=== PATIENT | male | born 1970 | race Two or more races ===

== ENCOUNTER 2020-06-12 19:32 | Emergency (ER) | payer MEDICAID, SELFPAY ==
--- NOTE | ~2020-06-12 | CT_ITS ---
EXAMINATION: HEAD AND CERVICAL SPINE CT SCAN WITHOUT CONTRAST CLINICAL INFORMATION: Fall. Loss of consciousness. COMPARISON: None TECHNIQUE: Axial images through the head and cervical spine without contrast. Sagittal and coronal reconstructions on the technologist workstation were performed. Patient dose 755+3 3 3 mg/cm. This CT examination was performed using dose optimization techniques as appropriate, variously including the following: *Automated exposure control *Adjustment of mA and/or kV according to patient size (this includes techniques or standardized protocols for targeted exams where dose is matched to indication/reason for exam; i.e. extremities or head) *Use of iterative reconstruction technique FINDINGS: Head CT: There is no evidence of an extra-axial collection. There is no evidence of intra-axial or extra-axial hemorrhage. The ventricles and extra-axial CSF spaces are appropriate. Kwong-white matter differentiation is normal. No mass, mass effect or infarct is seen. Review of bone windows demonstrates No skull fracture. There are inflammatory changes seen in the bilateral maxillary ethmoid and frontal sinuses. Cervical spine: Bone alignment is normal. No fracture or dislocation is seen. There is degenerative spondylosis at C4-C5 and C5-C6. There are degenerative changes at the C1 dens articulation. Prevertebral soft tissues are normal. Visualized lung apices are clear. CT/CT cervical spine wo con IMPRESSION: Head CT: No acute findings. Inflammatory changes in the sinuses. Cervical spine CT: No fracture or dislocation seen. Mild degenerative changes.
--- NOTE | ~2020-06-12 | CT_ITS ---
EXAMINATION: HEAD AND CERVICAL SPINE CT SCAN WITHOUT CONTRAST CLINICAL INFORMATION: Fall. Loss of consciousness. COMPARISON: None TECHNIQUE: Axial images through the head and cervical spine without contrast. Sagittal and coronal reconstructions on the technologist workstation were performed. Patient dose 755+3 3 3 mg/cm. This CT examination was performed using dose optimization techniques as appropriate, variously including the following: *Automated exposure control *Adjustment of mA and/or kV according to patient size (this includes techniques or standardized protocols for targeted exams where dose is matched to indication/reason for exam; i.e. extremities or head) *Use of iterative reconstruction technique FINDINGS: Head CT: There is no evidence of an extra-axial collection. There is no evidence of intra-axial or extra-axial hemorrhage. The ventricles and extra-axial CSF spaces are appropriate. Kwong-white matter differentiation is normal. No mass, mass effect or infarct is seen. Review of bone windows demonstrates No skull fracture. There are inflammatory changes seen in the bilateral maxillary ethmoid and frontal sinuses. Cervical spine: Bone alignment is normal. No fracture or dislocation is seen. There is degenerative spondylosis at C4-C5 and C5-C6. There are degenerative changes at the C1 dens articulation. Prevertebral soft tissues are normal. Visualized lung apices are clear. CT/CT head/brain wo con IMPRESSION: Head CT: No acute findings. Inflammatory changes in the sinuses. Cervical spine CT: No fracture or dislocation seen. Mild degenerative changes.
[2020-06-12 19:41] VITALS: BP 108/60; BP 132/73; PULSE 62; PULSE 67; RESP 14; TEMP 36.6; O2SAT 100; O2SAT 99; BMI 23.6
[2020-06-12 19:47] VITALS: BP 126/74; PULSE 59; RESP 18; TEMP 36.6; O2SAT 100
--- NOTE | 2020-06-12 21:25 | ED.SYNCOPE ---
HPI - Syncope General Chief Complaint: General Medical Stated Complaint: SYNCOPE S/P ANESTHESIA, LAC ABOVE EYE,+COLLAR Time Seen by Provider: 06/12/20 21:02 Source: patient Mode of arrival: EMS History of Present Illness HPI narrative: This is a 49-year-old male who has not been eating or drinking throughout the day and then went for a dental procedure where he had a tooth removed. He states that the procedure went well and he went home and was eating some food and Allis and he noticed that his vision was narrowing he began sweating and informed his that he wanted to take a nap got up to walk in the bedroom and then the , who is at bedside, states that she heard a thud. She states that he was face down and she knows some bleeding over his right eye. He denies any associated fevers, chills, palpitations, recent illnesses. But both he and his endorse poor p.o. intake throughout the day. Related Data Allergies Allergy/AdvReac Type Severity Reaction Status Date / Time No Known Allergies Allergy Verified 06/12/20 19:40 Review of Systems Review of Systems: Pertinent positives and negatives as stated in HPI and 10 point review of systems is otherwise negative. PMFSH Past Medical History Source: nursing notes reviewed Surgical History Previous back surgery Social History Social History Alcohol intake: never Smoking Status: Never smoker Use of substances other than those prescribed or required for medical reasons: No Advance Directives: No Physical Exam Vital Signs: Vital Signs: Last Vital Signs Temp 99.2 F 06/12/20 21:27 Pulse 72 06/12/20 21:27 Resp 18 06/12/20 21:27 BP 108/65 06/12/20 21:27 Pulse Ox 99 06/12/20 21:27 Body Mass Index 23.6 VITAL SIGNS: Reviewed. GENERAL: Well developed, well nourished, in no acute distress. HEAD: Normocephalic/3 cm laceration to the right eyebrow EYES: PERRLA, EOMI intact without pain, no nystagmus NOSE: Nares patent bilateral, no insert OROPHARYNX: no oral lesions noted, posterior pharynx clear NECK: C-collar in place, no midline cervical tenderness, no adenopathy LUNGS: Normal breath sounds. No adventitious sounds or accessory muscle use. SpO2<99> CARDIOVASCULAR: Regular rate and rhythm without noted murmur ABDOMEN: Soft, non-tender, non-distended with bowel sounds. NEUROLOGIC: Alert and oriented x 4. Strength and sensation to light touch were grossly intact x 4, no pronator drift Course Course Course Narrative: This is a 49-year-old male with history and clinical presentation secondary to vasovagal syncope. Review of all imaging is negative for any acute findings and C-collar was cleared. Laceration over the right brow was repaired without complications. Patient was then discharged home in stable condition after having received combination allergies. Procedures Laceration Laceration 1: Site: face Side (If applicable): right Size (cm): 3 Description: linear Depth: simple, single layer Local Anesthetic: lidocaine 2% Amount of anesthesia used (mL): 3 Pre-repair: wound explored and irrigated extensively Skin layer closed with: other (Prolene) Size (cm): 6-0 Number of sutures: 5 Technique: simple, interrupted Subcutaneous layer closed with: chromic gut Size: 5-0 Number of sutures: 2 Technique: simple, interrupted Discharge Plan Discharge Clinical Impression: Laceration Patient Disposition: Home, Self-Care Instructions: Laceration (ED), Care For Your Stitches (ED), Facial Laceration (ED) Additional Instructions: 1. Tylenol 1000 mg, orally, every 6 hours as needed for pain control. Do not exceed 4000 mg within 24 hours. 2. Ibuprofen 400 mg, orally with milk or food, every 6 hours as needed for pain control. 3. Apply ice 5-10 minutes to unexposed skin for additional swelling control. 4. Follow-up with your primary care provider in 5 days for removal of external sutures. May cleanse with soap and water and blot dry and reapply antibiotic ointment. Do not hesitate to return to the emergency department should you experience any worsening of swelling over the eye, changes in vision, fevers, chills. Referrals: Physician,Unknown [Primary Care Provider] - 2 days
[2020-06-12 21:27] VITALS: BP 108/65; PULSE 72; RESP 18; TEMP 37.3; O2SAT 99
[2020-06-12] MEDS: 0.9 % Sodium Chloride 1,000 ML 999 ML IV (21:29)
[2020-06-12] MEDS: Lidocaine HCl 2 % MPF 5 ML VIAL INFILTRATI (21:30)
[2020-06-12] MEDS: Acetaminophen 325 MG TABLET 975 MG PO (23:09)
[2020-06-12] MEDS: Ketorolac Tromethamine 15 MG/ML VIAL IVPUSH (23:09)
--- NOTE | 2020-06-12 23:10 | PC.NURSE ---
Dr. Bowers at bedside to suture pt. tolerating well thus far
== END 2020-06-12 23:45 | disposition home or self-care (01) ==
PROVIDERS: Emergency Provider Student in an Organized Health Care Education/Training Program
DX: S01.81XA Laceration without foreign body of other part of head, initial encounter (principal); M54.2 Cervicalgia; R55 Syncope and collapse; X58.XXXA Exposure to other specified factors, initial encounter; Y93.9 Activity, unspecified; Y92.9 Unspecified place or not applicable; Y99.9 Unspecified external cause status
CPT/HCPCS: 12013; 70450; 72125; 96360; 96375; 99284; J1885

== ENCOUNTER 2020-06-17 12:42 | Emergency (ER) | payer OTHER, SELFPAY ==
[2020-06-17 12:47] VITALS: BP 126/62; PULSE 99; RESP 18; TEMP 37.1; O2SAT 99; BMI 22.8
--- NOTE | 2020-06-17 12:52 | ED.SKABFB ---
HPI - Skin/Abscess/Foreign Bdy General Chief complaint: Skin/Abscess/Foreign Body Stated complaint: Lac Time Seen by Provider: 06/17/20 12:52 Source: patient Mode of arrival: ambulatory Limitations: no limitations History of Present Illness HPI narrative: 49 y/o male presenting for suture removal. He was seen here 5 days ago and 5 sutures were placed above his right eye brow. He reports the wound is healing nicely but he still has an egg that is tender. He has been using ice to the area with some improvement. He denies redness of the wound or drainage of pus. complaint: laceration Onset (ago): day(s) (5) Tetanus up to date: no Location: face Severity: mild Quality: aching Pain Consistency: intermittent Relieving factors: cold therapy Exacerbating factors: palpation Associated symptoms: denies other symptoms Treatments prior to arrival: none Related Data Allergies Allergy/AdvReac Type Severity Reaction Status Date / Time No Known Allergies Allergy Verified 06/12/20 19:40 Review of Systems Review of Systems: Constitutional: No Fever, No Chills Eyes: No Eye Pain, Swelling, No Redness Skin: + Skin Lesions, No rash Neuro: No Headache Psych: No Anxiety/Panic, No Depression Heme/Lymph: No Bruising, No Lymphadenopathy PMFSH Past Medical History Attestation statement: The following information was validated with the patient. Surgical History Previous back surgery Social History Social History Alcohol intake: never Smoking Status: Never smoker Advance Directives: No Advance Directives Information Provided: No Physical Exam Vital Signs: Vital Signs: Last Vital Signs Temp 98.7 F 06/17/20 12:47 Pulse 99 06/17/20 12:47 Resp 18 06/17/20 12:47 BP 126/62 06/17/20 12:47 Pulse Ox 99 06/17/20 12:47 Body Mass Index 22.8 Const: General: cooperative, healthy appearing, comfortable, no acute distress and well developed Orientation/consciousness: patient oriented x3 HENMT: Head: Yes normocephalic, No Sotelo's sign, Yes hematoma (over right eyebrow ) and No raccoon eyes Head images: 1. well healing laceration with [address], no erythema or warmth. Ears: hearing grossly normal bilaterally General nose exam: Normal external nose present Face and sinus: Yes normal facial exam Mouth: Normal oral and palatal mucosa present Eyes: Alignment and Position: alignment normal Periorbital: periorbital findings abnormal right periorbital tenderness Eyelids: Yes eyelids normal Conjunctivae: conjunctivae normal Neck: Neck: Yes normal visual inspection Chest: Chest palpation & inspection: normal inspection of the chest Resp: Effort & Inspection: normal respiratory effort and able to speak in complete sentences Skin: General skin exam: no rashes or lesions noted Neuro: General: patient oriented x3 and gait normal Extrem: General: Yes normal to inspection Psych: Appearance: grossly normal and well kempt Mental Status: mental status grossly normal Course Course Course Narrative: 49 y/o male presenting for suture removal 5 days after placement to right eyebrow as recommenced by Dr. Bowers who placed the sutures. Wound is healing as expected, wound margins are well approximated. 5 blue sutures were identified and removed successfully. Additional steri-strips were applied for continued support of closure. Wound care discussed with patient. Stable for discharge. Critical Care Time Critical Care Time Critical Care Time: No Discharge Plan Discharge Clinical Impression: Encounter for removal of sutures Patient Disposition: Home, Self-Care Instructions: Stitches Removal (ED) Additional Instructions: Continue to use ice several times per day to help with swelling and pain. You may get the steri-strips wet, then pat dry. They will fall off on their own, usually in 1 week. Follow up with your doctor as needed. Interventions: ED Discharge Assessment Last Done: 06/17/20 13:12 Discharge Date/Time: 06/17/20 13:13
== END 2020-06-17 13:13 | disposition home or self-care (01) ==
PROVIDERS: Emergency Provider Emergency Medicine
DX: S01.111D Laceration without foreign body of right eyelid and periocular area, subsequent encounter (principal); X58.XXXD Exposure to other specified factors, subsequent encounter; Z48.02 Encounter for removal of sutures
CPT/HCPCS: 99282; 99283

== ENCOUNTER 2020-06-21 09:49 | Outpatient (REF) | payer OTHER, SELFPAY ==
[2020-06-21 10:15] LABS: MANUAL DIFF FLAG NO
[2020-06-21 10:22] LABS: Basophils Percent Auto 0.4 % (0-2); Eosinophils Absolute Auto 0.6 X10*3/uL (0.0-0.4); Eosinophils Percent Auto 7.6 % (0-4); Hematocrit 38.9 % (42-52); Hemoglobin 12.8 g/dl (14.0-18.0); Imm Gran Abs Auto 0.02 X10*3/uL (0.00-0.03); Imm Gran Pct Auto 0.3 % (0.0-0.4); Lymphocytes Absolute Auto 2.9 X10*3/uL (1.2-4.9); Lymphocytes Percent Auto 37.1 % (20-40); Mean Corpuscular HGB Conc 32.9 g/dl (31.0-36.0); Mean Corpuscular Hemoglobin 31.3 pg (27.0-33.0); Mean Corpuscular Volume 95.1 fL (80-98); Mean Platelet Volume 9.4 fL (9.4-12.4); Monocytes Absolute Auto 0.6 X10*3/uL (0.1-1.2); Monocytes Percent Auto 7.7 % (2-11); Neutrophils Absolute Auto 3.6 X10*3/uL (2.0-8.3); Neutrophils Percent Auto 46.9 % (45-73); Platelet Count 376 X10*3/uL (160-400); Red Blood Count 4.09 X10*6/uL (4.60-5.80); Red Cell Distribution Width 14.2 % (11.0-16.0); White Blood Count 7.7 X10*3/uL (4.8-10.8)
[2020-06-21 10:50] LABS: Alanine Aminotransferase 23 U/L (0-40); Albumin Level 4.3 g/dL (3.5-5.0); Alkaline Phosphatase 89 U/L (39-117); Anion Gap 13 (12-20); Aspartate Amino Transferase 22 U/L (5-37); Bilirubin Total 0.3 mg/dL (0.0-1.0); Blood Urea Nitrogen 12 mg/dL (9-16); Calcium 9.1 mg/dL (8.4-10.2); Carbon Dioxide 27 mmol/L (22-29); Chloride 108 mmol/L (96-108); Cholesterol 180 mg/dL; Estimated Glomerular Filt Rate > 60; Glucose Fasting 93 mg/dL (60-99); HDL Cholesterol 71 mg/dL; LDL Cholesterol Calculated 97 mg/dl; Potassium 4.6 mmol/L (3.3-5.1); Sodium 143 mmol/L (135-145); Total Protein 6.8 g/dL (6.5-8.0); Triglycerides 60 mg/dL
[2020-06-21 11:15] LABS: Thyroid Stimulating Hormone 1.64 uIU/mL (0.32-4.0)
== END 2020-06-21 09:50 | disposition home or self-care (01) ==
LOC: HO.10HDL 09:49
PROVIDERS: Visit Provider Internal Medicine
DX: Z00.00 Encounter for general adult medical examination without abnormal findings (principal); E11.9 Type 2 diabetes mellitus without complications; E03.9 Hypothyroidism, unspecified
CPT/HCPCS: 36415; 80053; 80061; 84443; 85025

== ENCOUNTER 2020-09-26 16:24 | Outpatient (REF) | payer OTHER, SELFPAY ==
[2020-09-26 17:44] LABS: MANUAL DIFF FLAG NO
[2020-09-26 17:58] LABS: Basophils Absolute Auto 0.1 X10*3/uL (0.0-0.2); Basophils Percent Auto 0.5 % (0-2); Eosinophils Absolute Auto 0.4 X10*3/uL (0.0-0.4); Eosinophils Percent Auto 4.2 % (0-4); Hematocrit 38.1 % (42-52); Hemoglobin 12.9 g/dl (14.0-18.0); Imm Gran Abs Auto 0.05 X10*3/uL (0.00-0.03); Imm Gran Pct Auto 0.5 % (0.0-0.4); Lymphocytes Absolute Auto 2.5 X10*3/uL (1.2-4.9); Lymphocytes Percent Auto 25.8 % (20-40); Mean Corpuscular HGB Conc 33.9 g/dl (31.0-36.0); Mean Corpuscular Hemoglobin 32.5 pg (27.0-33.0); Mean Platelet Volume 9.9 fL (9.4-12.4); Monocytes Absolute Auto 0.7 X10*3/uL (0.1-1.2); Monocytes Percent Auto 7.6 % (2-11); Neutrophils Percent Auto 61.4 % (45-73); Platelet Count 326 X10*3/uL (160-400); Red Blood Count 3.97 X10*6/uL (4.60-5.80); Red Cell Distribution Width 14.1 % (11.0-16.0); White Blood Count 9.7 X10*3/uL (4.8-10.8)
[2020-09-26 18:14] LABS: Alanine Aminotransferase 21 U/L (0-40); Albumin Level 4.6 g/dL (3.5-5.0); Alkaline Phosphatase 83 U/L (39-117); Aspartate Amino Transferase 24 U/L (5-37); Bilirubin Direct 0.2 mg/dL (0.0-0.5); Bilirubin Total 0.4 mg/dL (0.0-1.0); C Reactive Protein 0.11 mg/dL (< or = 0.50); Iron 64 mcg/dL (45-160); Percent Iron Saturation 24 % (15-50); Total Iron Binding Capacity 264 mcg/dL (228-428); Total Protein 7.2 g/dL (6.5-8.0); Unsaturated Iron Binding 200 ug/dL
[2020-09-26 18:24] LABS: Erythrocyte Sedimentation Rate 10 MM/HR (0-15)
[2020-09-26 18:37] LABS: Ferritin 112 ng/mL (20-250)
== END 2020-09-26 16:25 | disposition home or self-care (01) ==
LOC: HO.LAB 16:24
PROVIDERS: PCP Internal Medicine; Visit Provider Internal Medicine
DX: K51.00 Ulcerative (chronic) pancolitis without complications (principal); R63.4 Abnormal weight loss; D64.9 Anemia, unspecified
CPT/HCPCS: 36415; 80076; 82728; 83540; 85025; 85652; 86140

== ENCOUNTER 2020-10-02 08:06 | Outpatient (REF) | payer OTHER, SELFPAY ==
--- NOTE | ~2020-10-02 | XR_ITS ---
EXAMINATION: XR KNEES, BILATERAL CLINICAL INFORMATION: Pain in the left knee COMPARISON: X-rays of the knees October 2016. MRI of the left knee December 2016 TECHNIQUE: 3 views of both knees including AP upright FINDINGS: Right Knee: Tiny marginal osteophytes about the patellofemoral compartment without joint space narrowing. Medial compartment and lateral compartment normal. No effusion. Surrounding bone and soft tissues unremarkable. Left Knee: Small marginal osteophytes about the medial and lateral compartments without joint space narrowing indicative of mild osteoarthritis. Minimal marginal osteophytes but the patellofemoral compartment indicative of minimal arthrosis. No joint space narrowing. Mild joint effusion. XR/XR knee LT 2V IMPRESSION: Right Knee: Minimal arthrosis of the patellofemoral compartment. Left Knee: Joint effusion. Mild osteoarthritis probably unchanged,
--- NOTE | ~2020-10-02 | XR_ITS ---
EXAMINATION: XR KNEES, BILATERAL CLINICAL INFORMATION: Pain in the left knee COMPARISON: X-rays of the knees October 2016. MRI of the left knee December 2016 TECHNIQUE: 3 views of both knees including AP upright FINDINGS: Right Knee: Tiny marginal osteophytes about the patellofemoral compartment without joint space narrowing. Medial compartment and lateral compartment normal. No effusion. Surrounding bone and soft tissues unremarkable. Left Knee: Small marginal osteophytes about the medial and lateral compartments without joint space narrowing indicative of mild osteoarthritis. Minimal marginal osteophytes but the patellofemoral compartment indicative of minimal arthrosis. No joint space narrowing. Mild joint effusion. XR/XR knee RT 2V IMPRESSION: Right Knee: Minimal arthrosis of the patellofemoral compartment. Left Knee: Joint effusion. Mild osteoarthritis probably unchanged,
--- NOTE | ~2020-10-02 | XR_ITS ---
EXAMINATION: XR KNEES, BILATERAL CLINICAL INFORMATION: Pain in the left knee COMPARISON: X-rays of the knees October 2016. MRI of the left knee December 2016 TECHNIQUE: 3 views of both knees including AP upright FINDINGS: Right Knee: Tiny marginal osteophytes about the patellofemoral compartment without joint space narrowing. Medial compartment and lateral compartment normal. No effusion. Surrounding bone and soft tissues unremarkable. Left Knee: Small marginal osteophytes about the medial and lateral compartments without joint space narrowing indicative of mild osteoarthritis. Minimal marginal osteophytes but the patellofemoral compartment indicative of minimal arthrosis. No joint space narrowing. Mild joint effusion. XR/XR knee standing BI IMPRESSION: Right Knee: Minimal arthrosis of the patellofemoral compartment. Left Knee: Joint effusion. Mild osteoarthritis probably unchanged,
== END 2020-10-02 08:07 | disposition home or self-care (01) ==
LOC: HO.HOSX 08:06
PROVIDERS: Visit Provider Orthopaedic Surgery
DX: M25.562 Pain in left knee (principal); M22.2X2 Patellofemoral disorders, left knee; M25.561 Pain in right knee
CPT/HCPCS: 20610; 73560; 73565; 99202; J1040

== ENCOUNTER 2020-10-19 07:51 | Day surgery (SDC) | payer OTHER, SELFPAY ==
[2020-10-12 13:44] VITALS: BMI 22.4
--- NOTE | 2020-10-17 15:25 | HO.ANESPROP2 ---
Documented by User: Rose Rojasney 10/17/20 15:26 HPI - Anesthesia Eval Consult details Narrative: 50yo M for Upper Endoscopy and Colonoscopy PMFSH Active Problems Active Problems: All Active Problems (Updated 10/17/20 @ 10:10 by Antonio David MD) Paresthesia of both hands (Acute) Chronic pain syndrome (Acute) Anemia (Acute) Normochromic normocytic anemia (Acute) Patellofemoral pain syndrome of left knee (Acute) Back pain (Acute) Past Medical History Medical History Anemia Back pain Colitis DJD (degenerative joint disease) Fatigue Knee pain Family History Family History Mother No problems noted. Father No problems noted. Brother Asthma Sister Asthma Surgical History Surgical History H/O knee surgery History of appendectomy History of esophagogastroduodenoscopy (EGD) History of surgical amputation of finger of right hand Hx of colonoscopy Previous back surgery Social History Social History Housing: House Alcohol intake: current Alcohol intake frequency: a few times a month Alcohol type: beer Patient Tobacco Use Status: Current someday Tobacco user Tobacco use type: Cigar Cigarettes Per Day: 1 Use of substances other than those prescribed or required for medical reasons: No Are you DNR?: No Advance Directives: No Advance Directives Information Provided: Yes Current occupational status: unemployed Current occupation: right handed Meds Allergies Allergy/AdvReac Type Severity Reaction Status Date / Time No Known Allergies Allergy Verified 10/12/20 13:40 Home Medications Medication Instructions Recorded Confirmed Last Taken Type multivit,calc,mins-folic 240 1 tab PO DAILY tab 06/20/20 10/12/20 Unknown History mcg-vit K1 30 mcg-lycopene 300 mcg tablet Probiotic 10/12/20 10/12/20 Unknown History Exam Exam Date and Time: October 17, 2020 1525 Height,Weight and Vital Signs: Height 5 ft 8.5 in Weight 68.039 kg Pertinent Lab Results Pertinent Lab Results: Laboratory Tests 05/07/21 06/30/21 09:58 16:30 WBC 9.7 Hgb 12.9 L Hct 38.1 L Plt Count 326 Sodium 140 Potassium 4.3 Chloride 107 Carbon Dioxide 28 BUN 12 Creatinine 0.91 Assessment and Plan Assessment Anesthesia Assessment: Chart Reviewed Documented by User: Keke Smith 10/19/20 08:21 PMFSH Past Medical History Medical History Anemia Back pain Colitis DJD (degenerative joint disease) Fatigue Knee pain Family History Family History Mother No problems noted. Father No problems noted. Brother Asthma Sister Asthma Surgical History Surgical History H/O knee surgery History of appendectomy History of esophagogastroduodenoscopy (EGD) History of surgical amputation of finger of right hand Hx of colonoscopy Previous back surgery Social History Social History Housing: House Alcohol intake: current Alcohol intake frequency: a few times a month Alcohol type: beer Patient Tobacco Use Status: Current someday Tobacco user Tobacco use type: Cigar Cigarettes Per Day: 1 Use of substances other than those prescribed or required for medical reasons: No Are you DNR?: No Advance Directives: No Advance Directives Information Provided: Yes Current occupational status: unemployed Current occupation: right handed Meds Allergies Allergy/AdvReac Type Severity Reaction Status Date / Time No Known Allergies Allergy Verified 10/12/20 13:40 Home Medications Medication Instructions Recorded Confirmed Last Taken Type multivit,calc,mins-folic 240 1 tab PO DAILY tab 06/20/20 10/12/20 Unknown History mcg-vit K1 30 mcg-lycopene 300 mcg tablet Probiotic 10/12/20 10/12/20 Unknown History Exam Airway Mallampati Class: II TM Dist: >3cm Neck ROM: Full Heart: RRR Lungs: CTA
[2020-10-19 08:12] VITALS: BP 113/72; PULSE 64; RESP 16; TEMP 36.3; O2SAT 100; BMI 22.1
[2020-10-19] MEDS: Lactated Ringers 1,000 ML 100 ML IVCONT (08:32)
[2020-10-19 10:20] VITALS: BP 112/77; PULSE 82; RESP 18; TEMP 37.1; O2SAT 100
--- NOTE | 2020-10-19 10:30 | PM.OP ---
Brief Operative Note Date of Service: 10/19/20 Pre-op diagnosis: Anorexia, Diarrhea Post-op diagnosis: other (Reflux esophagitis, Hiatal hernia, Minimal changes of colitis in cecum, Diverticulosis) Procedure: EGD with biopsies, Colonoscopy to the cecum with biopsies Surgeon: Charli Jimenez Anesthesia: MAC Was an Supervisor [employer]pection used for this Procedure?: No Estimated blood loss (mL): 5.0 Pathology: other (A. Descending duodenum B. Gastric antrum C. EG Junction at 35cm D. Ascending colon E. Cecum F. Terminal ileum G. Descending colon) Condition: stable Disposition: PACU
[2020-10-19 10:35] VITALS: BP 105/72; PULSE 68; RESP 18; TEMP 37.1; O2SAT 100
--- NOTE | 2020-10-19 11:15 | HO.POSTANES ---
Post Anesthesia Evaluation Post Anesthesia Evaluation Vital Signs: Vital Signs Temp Pulse Resp BP Pulse Ox 10/19/20 10:35 98.7 F 68 18 105/72 100 10/19/20 10:20 98.7 F 82 18 112/77 100 10/19/20 08:12 97.3 F 64 16 113/72 100 Anesthesia: Monitored Mental Status: Awake Pain Control: Satisfactory Nausea/Vomiting: None Hydration: Adequate Anesthesia-Related Issues: No Anes. Related Issues
--- NOTE | 2020-10-19 20:22 | OP_ITS ---
SURGEON: Charli Jimenez MD INDICATIONS: The patient presents for evaluation of history of ulcerative colitis, diarrhea, anorexia, and weight loss. Full consent has been obtained from him for this, including risks of bleeding and perforation. PREOPERATIVE DIAGNOSIS: POSTOPERATIVE DIAGNOSIS: PROCEDURE PERFORMED: Esophagogastroduodenoscopy with biopsies and colonoscopy to the cecum and terminal ileum with biopsies. ESTIMATED BLOOD LOSS: COMPLICATIONS: ANESTHESIA: Monitored anesthesia care. ASSISTANTS: SPECIMENS: PREOPERATIVE DIAGNOSES: History of ulcerative colitis, weight loss, diarrhea, anorexia, and anemia. POSTOPERATIVE DIAGNOSES: History of ulcerative colitis, weight loss, diarrhea, anorexia, and anemia, hiatal hernia, reflux esophagitis, rule out Arreaga's esophagus, rule out celiac disease, rule out gastritis, minimal changes of colitis in cecum, diverticulosis and internal hemorrhoids. DESCRIPTION OF PROCEDURE: The patient was placed in the left lateral decubitus position. The Olympus video gastroscope was passed in the posterior oropharynx and upper esophagus under direct vision. The scope was passed slowly into the distal esophagus. The gastroesophageal junction appeared at 35 cm. There was some slight irregularity consistent with possible Arreaga's mucosa. There was also esophagitis with a single erosion. There was no stricture nor mass. The scope entered into the stomach. There was a small hiatal hernia. The scope was advanced to pylorus and the duodenum was cannulated to the descending portion. The duodenum including the bulb appeared normal without mass or ulceration. Biopsies were obtained from the second and third portions of duodenum. The scope was withdrawn back in the stomach. The gastric antrum had some mild areas of erythema and edema, but no erosions or ulceration. There was good peristalsis. The scope was retroflexed visualizing the proximal stomach carefully which appeared normal, without any sign of mass or ulceration. The scope was straightened. Biopsies were obtained from the gastric antrum. The scope was withdrawn back into the esophagus. Multiple biopsies were obtained at the EG junction at 35 cm. Proximal to this, the esophageal mucosa appeared normal. The scope was withdrawn from the patient. He was turned around for colonoscopy. The digital rectal exam revealed no abnormalities. The Olympus video pediatric colonoscope was entered into the rectum and advanced easily to the cecum. Once in the cecum, I did identify cecal pouch with appendiceal orifice and a normal-appearing ileocecal valve. The terminal ileum was cannulated for at least 5 to 10 cm and appeared normal. Biopsies were obtained. The scope was withdrawn back in the colon. The cecum was normal other than several scattered less than 5 mm erosions. There was some edema as well. Biopsies were obtained from the cecum. The scope was then slowly withdrawn assessing all mucosal surfaces carefully. Preparation was excellent. I did not visualize any sign of colitis, polyps, nor angiodysplasia. I did obtain biopsies in the ascending and descending colon. There was a mild amount of sigmoid diverticulosis. In the rectum, scope was retroflexed visualizing internal hemorrhoids, but no other pathology. The rectal mucosa appeared normal. The scope was straightened out and withdrawn from the patient. He tolerated the procedure well and was returned to the recovery area in stable condition. IMPRESSION: 1. Reflux esophagitis, rule out Arreaga's esophagus. 2. Hiatal hernia. 3. Rule out celiac disease. 4. Rule out gastritis. 5. Minimal changes of colitis in cecum. 6. Diverticulosis. 7. Internal hemorrhoids. PLAN: The results of the biopsies will be checked. I shall begin him on omeprazole 20 mg daily to see if that helps with his appetite and some of his symptoms given the upper endoscopy findings. He was advised not to use any aspirin and NSAIDs for at least 1 week. I shall tell him to use Imodium on a p.r.n. basis. His recent labs looked reassuring with a normal sedimentation rate, normal C-reactive protein, hemoglobin of 12.9, normal LFTs including an albumin of 4.6, iron of 64, iron saturation 24%, and a normal ferritin of 112. He will be seen in 1 or 2 months for a followup visit. This has been discussed with his . MD RAJEEV Calero/JULIO / [id number]
== END 2020-10-19 13:24 | disposition home or self-care (01) ==
PROVIDERS: PCP Internal Medicine; Visit Provider Internal Medicine
PROC: (CPT 45380; principal; 2020-10-19 09:10)
DX: D64.9 Anemia, unspecified (principal); K57.30 Diverticulosis of large intestine without perforation or abscess without bleeding; K64.8 Other hemorrhoids; R63.4 Abnormal weight loss; K21.00 Gastro-esophageal reflux disease with esophagitis, without bleeding; K51.00 Ulcerative (chronic) pancolitis without complications; K29.80 Duodenitis without bleeding; K44.9 Diaphragmatic hernia without obstruction or gangrene; F17.290 Nicotine dependence, other tobacco product, uncomplicated; Z79.899 Other long term (current) drug therapy
CPT/HCPCS: 45380; 43239; 88305; 88342

== ENCOUNTER 2020-11-05 11:01 | Outpatient (REF) | payer OTHER, SELFPAY ==
--- NOTE | ~2020-11-05 | XR_ITS ---
EXAMINATION: XR ELBOW, RIGHT CLINICAL INFORMATION: Pain. COMPARISON: None TECHNIQUE: AP, lateral, and oblique views of the right elbow. FINDINGS: There is degeneration here. Spurring at the insertion of the triceps on the olecranon. Minimal lucency associated. Coronoid process also shows likely degeneration with irregularity. Some degenerative change along the medial collateral ligament. No bony erosion or osteopenia is seen. XR/XR elbow RT min 3V IMPRESSION: Degenerative changes. As described, some degenerative spurring at the insertion of the triceps with a small lucency through the area. I cannot completely exclude a fracture through an osteophyte here, but correlation would be recommended clinically.
== END 2020-11-05 11:02 | disposition home or self-care (01) ==
LOC: HO.XRAY 11:01
PROVIDERS: PCP Internal Medicine; Visit Provider Internal Medicine Medical Oncology
DX: M25.521 Pain in right elbow (principal)
CPT/HCPCS: 73080

== ENCOUNTER → 2021-01-24 12:33 | Outpatient (BNVA) | payer OTHER, SELFPAY | PROVIDERS: PCP Internal Medicine; Visit Provider Internal Medicine | DX: E55.9 Vitamin D deficiency, unspecified (principal); F32.A Depression, unspecified; R63.4 Abnormal weight loss | CPT/HCPCS: 99202 ==

== ENCOUNTER 2021-01-25 07:50 | Outpatient (REF) | payer OTHER, SELFPAY ==
[2021-01-25 08:59] LABS: Free T4 (Free Thyroxine) 1.01 ng/dL (0.71-1.85); Thyroid Stimulating Hormone 1.44 uIU/mL (0.32-4.0)
[2021-01-25 09:50] LABS: Cortisol Random 17.7 ug/dL
[2021-01-28 21:01] LABS: Adrenocorticotropic Hormone 22 pg/mL (6-50)
== END 2021-01-25 07:51 | disposition home or self-care (01) ==
LOC: HO.10HDL 07:50
PROVIDERS: Visit Provider Internal Medicine
DX: R63.4 Abnormal weight loss (principal)
CPT/HCPCS: 36415; 82024; 82533; 84439; 84443

== ENCOUNTER 2021-04-22 09:50 | Outpatient (REF) | payer OTHER, SELFPAY ==
[2021-04-22 10:02] LABS: MANUAL DIFF FLAG NO
[2021-04-22 10:22] LABS: Basophils Absolute Auto 0.1 X10*3/uL (0.0-0.2); Basophils Percent Auto 0.6 % (0-2); Eosinophils Absolute Auto 0.7 X10*3/uL (0.0-0.4); Eosinophils Percent Auto 8.3 % (0-4); Hematocrit 40.6 % (42.0-52.0); Hemoglobin 13.6 g/dl (14.0-18.0); Imm Gran Abs Auto 0.03 X10*3/uL (0.00-0.03); Imm Gran Pct Auto 0.4 % (0.0-0.4); Lymphocytes Absolute Auto 2.2 X10*3/uL (1.2-4.9); Lymphocytes Percent Auto 27.6 % (20-40); Mean Corpuscular HGB Conc 33.5 g/dl (31.0-36.0); Mean Corpuscular Hemoglobin 32.6 pg (27.0-33.0); Mean Corpuscular Volume 97.4 fL (80.0-98.0); Mean Platelet Volume 9.1 fL (9.4-12.4); Monocytes Absolute Auto 0.6 X10*3/uL (0.1-1.2); Monocytes Percent Auto 7.9 % (2-11); Neutrophils Absolute Auto 4.5 x10*3/uL (2.0-8.3); Neutrophils Percent Auto 55.2 % (45-73); Platelet Count 352 X10*3/uL (160-400); Red Blood Count 4.17 X10*6/uL (4.60-5.80); Red Cell Distribution Width 14.5 % (11.0-16.0); White Blood Count 8.1 X10*3/uL (4.8-10.8)
[2021-04-22 10:46] LABS: Estimated Average Glucose 105 mg/dL; Hemoglobin A1c % 5.3 %
[2021-04-22 11:07] LABS: Anion Gap 9 (12-20); Blood Urea Nitrogen 12 mg/dL (9-16); Calcium 9.8 mg/dL (8.4-10.2); Carbon Dioxide 31 mmol/L (22-29); Chloride 106 mmol/L (96-108); Cholesterol 218 mg/dL; Estimated Glomerular Filt Rate > 60; Glucose Fasting 95 mg/dL (60-99); HDL Cholesterol 71 mg/dL; LDL Cholesterol Calculated 136 mg/dl; Potassium 4.9 mmol/L (3.3-5.1); Sodium 141 mmol/L (135-145); Triglycerides 58 mg/dL
[2021-04-22 11:08] LABS: Creatinine Urine 79.62 mg/dL; Microalbumin Urine < 5.0 mg/L
[2021-04-22 11:14] LABS: Erythrocyte Sedimentation Rate 12 MM/HR (0-15)
[2021-04-22 11:39] LABS: Folate 17.3 ng/mL (> or = 4.0); Vitamin B12 568 pg/mL (200-900)
[2021-04-26 15:16] LABS: Vitamin D 25-OH, D2 <4 ng/mL; Vitamin D 25-OH, D3 23 ng/mL; Vitamin D 25-OH, Total 23 ng/mL (30-100)
== END 2021-04-22 09:51 | disposition home or self-care (01) ==
LOC: HO.LAB 09:50
PROVIDERS: PCP Nurse Practitioner Acute Care; Visit Provider Nurse Practitioner Acute Care
DX: Z12.5 Encounter for screening for malignant neoplasm of prostate (principal); F32.A Depression, unspecified
CPT/HCPCS: 36415; 80048; 80061; 82043; 82306; 82607; 82746; 83036; 84153; 85025; 85652

== ENCOUNTER → 2021-07-09 14:01 | Outpatient (BNVA) | payer OTHER, SELFPAY | PROVIDERS: PCP Nurse Practitioner Acute Care; Visit Provider Nurse Practitioner Family | DX: M54.16 Radiculopathy, lumbar region (principal); M96.1 Postlaminectomy syndrome, not elsewhere classified; M53.3 Sacrococcygeal disorders, not elsewhere classified; Z98.1 Arthrodesis status; Z79.899 Other long term (current) drug therapy | CPT/HCPCS: 99202 ==

== ENCOUNTER 2021-07-18 16:46 | Outpatient (REF) | payer OTHER, SELFPAY ==
--- NOTE | ~2021-07-18 | XR_ITS ---
EXAMINATION: XR SKULL CLINICAL INFORMATION: Personal history of healed physical injury COMPARISON: None TECHNIQUE: 5 views of the skull were obtained. FINDINGS: No fracture is identified. No evidence for a bony abnormality of the skull. XR/XR skull min 4V IMPRESSION: Unremarkable plain films. No fracture is seen. If further evaluation is warranted recommend CT.
[2021-07-18 19:13] LABS: Erythrocyte Sedimentation Rate 37 MM/HR (0-15)
[2021-07-20 14:42] LABS: CRP High Sensitivity >10.0 mg/L
== END 2021-07-18 16:47 | disposition home or self-care (01) ==
LOC: HO.XRAY 16:46
PROVIDERS: PCP Nurse Practitioner Acute Care; Visit Provider Hospitalist
DX: M25.50 Pain in unspecified joint (principal); Z87.828 Personal history of other (healed) physical injury and trauma
CPT/HCPCS: 36415; 70260; 85652; 86141

== ENCOUNTER 2021-08-14 12:21 | Outpatient (REF) | payer OTHER, SELFPAY ==
[2021-08-14 13:37] LABS: Hemoglobin 12.4 g/dl (14.0-18.0); Mean Corpuscular HGB Conc 33.5 g/dl (31.0-36.0); Mean Corpuscular Hemoglobin 31.8 pg (27.0-33.0); Mean Corpuscular Volume 94.9 fL (80.0-98.0); Mean Platelet Volume 9.8 fL (9.4-12.4); Platelet Count 372 X10*3/uL (160-400); Red Cell Distribution Width 14.6 % (11.0-16.0); White Blood Count 8.8 X10*3/uL (4.8-10.8)
[2021-08-14 14:14] LABS: Erythrocyte Sedimentation Rate 19 MM/HR (0-15)
[2021-08-16 15:51] LABS: CRP High Sensitivity 2.6 mg/L
== END 2021-08-14 12:22 | disposition home or self-care (01) ==
LOC: HO.10HDL 12:21
PROVIDERS: Visit Provider Hospitalist
DX: M70.32 Other bursitis of elbow, left elbow (principal); M70.31 Other bursitis of elbow, right elbow; R79.82 Elevated C-reactive protein (CRP); R70.0 Elevated erythrocyte sedimentation rate
CPT/HCPCS: 36415; 85027; 85652; 86141

== ENCOUNTER 2021-09-17 14:56 | Outpatient (REF) | payer OTHER, SELFPAY ==
--- NOTE | ~2021-09-17 | XR_ITS ---
EXAMINATION: KNEE X-RAY CLINICAL INFORMATION: Pain COMPARISON: Previous x-ray September 2020 and June 2021 TECHNIQUE: Standing AP view of both knees and lateral and sunrise view of the left knee FINDINGS: Left: Bone alignment is normal. No fracture or dislocation is seen. There is mild arthritis at the patellofemoral and femoral tibial joints with small osteophytes. There is a small joint effusion. Standing AP view of the right knee is unremarkable. XR/XR knee standing BI IMPRESSION: Mild left knee arthritis.
--- NOTE | ~2021-09-17 | XR_ITS ---
EXAMINATION: KNEE X-RAY CLINICAL INFORMATION: Pain COMPARISON: Previous x-ray September 2020 and June 2021 TECHNIQUE: Standing AP view of both knees and lateral and sunrise view of the left knee FINDINGS: Left: Bone alignment is normal. No fracture or dislocation is seen. There is mild arthritis at the patellofemoral and femoral tibial joints with small osteophytes. There is a small joint effusion. Standing AP view of the right knee is unremarkable. XR/XR knee LT 2V IMPRESSION: Mild left knee arthritis.
== END 2021-09-17 14:57 | disposition home or self-care (01) ==
LOC: HO.HOSX 14:56
PROVIDERS: Visit Provider Physician Assistant
DX: M25.562 Pain in left knee (principal)
CPT/HCPCS: 73560; 73565

== ENCOUNTER 2021-09-26 14:21 | Outpatient (REF) | payer OTHER, SELFPAY ==
--- NOTE | ~2021-09-26 | MR_ITS ---
EXAMINATION: MR LUMBAR SPINE WITHOUT AND WITH CONTRAST CLINICAL INFORMATION: Low back pain. Bilateral lower extremity pain, weakness, and numbness. COMPARISON: CT scan of the lumbar spine 05/31/2019. TECHNIQUE: Multiplanar MR imaging of the lumbar spine was performed without and with contrast. A total of 7 mL Gadavist was utilized for this examination. FINDINGS: There are chronic postoperative changes of an interbody fusion at L4-L5 and L5-S1. More recent changes of a posterior spinal fusion with transpedicular hardware extending from L3 to L4. Alignment is normal. Vertebral heights are preserved. There are type I degenerative endplate changes at L2-L3. There is slight loss of intervertebral disc height and T2 signal intensity at L2-L3 related to disc degeneration. The tip of the conus medullaris is located at T12-L1. No mass effect on the conus. Visualized distal cord signal intensity is normal. At L1-L2 the annular contour is normal. No canal or neuroforaminal compromise. At L2-L3 there is a shallow left subarticular protrusion superimposed upon a diffusely bulging disc. Bilateral facet degenerative change. Mild canal stenosis. There is subtle abutment of the left traversing L3 nerve roots. No foraminal nerve root compression. At L3-L4 there is no canal or neuroforaminal compromise. At L4-L5 there is no canal or neuroforaminal compromise. At L5-S1 there is no canal or neuroforaminal compromise. Limited visualization of the retroperitoneal anatomy reveals no abnormal finding. Psoas and paraspinal muscle groups are symmetric. MR/MR lumbar spine wo/w con IMPRESSION: There are chronic postoperative changes of a spinal fusion including interbody hardware at L4-L5 and L5-S1 and a transpedicular hardware construct extending from L3 to L4. The L3-S1 vertebral segments are effectively fused. Consequently there is junctional spondylosis at the level of L2-L3 where there is a left subarticular protrusion superimposed upon a bulging disc causing abutment of left traversing L3 nerve roots and mild canal stenosis. Otherwise no substantial mass effect on the traversing or foraminal nerve roots elsewhere within the lumbar spine.
== END 2021-09-26 14:22 | disposition home or self-care (01) ==
LOC: HO.MRI 14:21
PROVIDERS: Visit Provider Nurse Practitioner Family
DX: M54.16 Radiculopathy, lumbar region (principal); M96.1 Postlaminectomy syndrome, not elsewhere classified
CPT/HCPCS: 72158; A9585

== ENCOUNTER → 2021-11-19 09:59 | Outpatient (BNVA) | payer OTHER, SELFPAY | PROVIDERS: PCP Hospitalist; Visit Provider Nurse Practitioner Family | DX: G43.009 Migraine without aura, not intractable, without status migrainosus (principal); M54.2 Cervicalgia; Z79.899 Other long term (current) drug therapy | CPT/HCPCS: 99202 ==

== ENCOUNTER 2021-12-03 06:25 | Outpatient (REF) | payer OTHER, SELFPAY ==
--- NOTE | ~2021-12-03 | FL_ITS ---
EXAMINATION: XR FLUOROSCOPY WITH IMAGES CLINICAL INFORMATION: M53.3 - Sacrococcygeal disorders, not elsewhere classified COMPARISON: MR lumbar spine 09/26/2021 TECHNIQUE: Fluoroscopy performed by Dr. Raymond Cano. Fluoroscopy time: 0.2 minutes. Cumulative Dose: 2.37 mGy. DAP: 0.647 Gy-cm2. Images: 2. FINDINGS: Spinal needle overlies the lower left SI joint and spinal needle overlies the mid right SI joint. There is contrast in the periarticular soft tissues with probable early intra-articular contrast. No vasculature communication appreciated. There is hardware in the lumbar spine as noted on MRI. FL/FL guidance in treatment room IMPRESSION: Fluoroscopy for pain management procedure.
== END 2021-12-03 06:26 | disposition home or self-care (01) ==
LOC: HO.RADIR 06:25
PROVIDERS: Visit Provider Anesthesiology
DX: M53.3 Sacrococcygeal disorders, not elsewhere classified (principal); M96.1 Postlaminectomy syndrome, not elsewhere classified
CPT/HCPCS: 27096; J3300

== ENCOUNTER 2021-12-10 10:00 | Outpatient (RCR) | payer OTHER, SELFPAY ==
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
--- NOTE | 2021-12-26 10:31 | MHC.PT.DC ---
[facility] [place] Office [place] [facility] [place] Office [address] Sera Kennedy [address] [phone] F: [phone] F: [phone] F: [phone] F: [phone] Physical Therapy Discharge Report Diagnosis: R shoulder strain (RC + BB) Date of Surgery: N/A Date of Evaluation: 11/19/21 Date of Discharge: 12/26/21 Treatments to Date: 4 Cancellations to Date: 2 No Shows to Date: 4 Discharge Status: Visit Non-compliance Discharge Summary: The patient was reporting some improvements in his pain frequency and severity. He was improving regarding his postural awareness and cervical/thoracic mobility and strength. He has no showed four appointments. Per [facility] attendance policy he is being discharged for non-compliance. The patient has a home exercise program of the exercises performed throughout this plan of care and should continue with these to manage his symptoms. Electronically signed by: Allyson Islas PT, DPT Please sign and return to therapist. Thank you for your referral.
== END 2021-12-26 10:32 | disposition home or self-care (01) ==
LOC: HO.PT 10:00
PROVIDERS: PCP Hospitalist; Visit Provider Physician Assistant
DX: S46.911A Strain of unspecified muscle, fascia and tendon at shoulder and upper arm level, right arm, initial encounter (principal)
CPT/HCPCS: 97110; 97162; J0280; J2785

== ENCOUNTER → 2021-12-19 13:52 | Outpatient (BNVA) | payer OTHER, SELFPAY | PROVIDERS: PCP Hospitalist; Visit Provider Nurse Practitioner Family | DX: G43.009 Migraine without aura, not intractable, without status migrainosus (principal); D64.9 Anemia, unspecified; Z79.899 Other long term (current) drug therapy; Z87.828 Personal history of other (healed) physical injury and trauma | CPT/HCPCS: 99212 ==

== ENCOUNTER → 2021-12-30 13:57 | Outpatient (BNVA) | payer OTHER, SELFPAY | PROVIDERS: PCP Hospitalist; Visit Provider Orthopaedic Surgery | DX: G56.03 Carpal tunnel syndrome, bilateral upper limbs (principal); G56.22 Lesion of ulnar nerve, left upper limb; G56.21 Lesion of ulnar nerve, right upper limb | CPT/HCPCS: 99202 ==

== ENCOUNTER 2022-01-20 13:45 | Outpatient (REF) | payer OTHER, SELFPAY ==
[2022-01-20 14:55] LABS: Erythrocyte Sedimentation Rate 39 MM/HR (0-15)
[2022-01-20 15:06] LABS: Blood Urea Nitrogen 12 mg/dL (9-16); Estimated Glomerular Filt Rate > 60
[2022-01-22 14:22] LABS: CRP High Sensitivity 9.2 mg/L
== END 2022-01-20 13:46 | disposition home or self-care (01) ==
LOC: HO.LAB 13:45
PROVIDERS: Absent Provider Hospitalist; PCP Hospitalist; Visit Provider Nurse Practitioner Family
DX: Z01.812 Encounter for preprocedural laboratory examination (principal); R70.0 Elevated erythrocyte sedimentation rate; R79.82 Elevated C-reactive protein (CRP)
CPT/HCPCS: 36415; 82565; 84520; 85652; 86141

== ENCOUNTER 2022-01-21 10:33 | Outpatient (REF) | payer OTHER, SELFPAY ==
[2022-01-21 13:40] LABS: MANUAL DIFF FLAG NO
[2022-01-21 13:51] LABS: Basophils Absolute Auto 0.1 X10*3/uL (0.0-0.2); Basophils Percent Auto 0.5 % (0-2); Eosinophils Absolute Auto 0.8 X10*3/uL (0.0-0.4); Eosinophils Percent Auto 7.4 % (0-4); Hematocrit 37.4 % (42.0-52.0); Hemoglobin 12.2 g/dl (14.0-18.0); Imm Gran Abs Auto 0.04 X10*3/uL (0.00-0.03); Imm Gran Pct Auto 0.4 % (0.0-0.4); Lymphocytes Absolute Auto 1.9 X10*3/uL (1.2-4.9); Lymphocytes Percent Auto 18.1 % (20-40); Mean Corpuscular HGB Conc 32.6 g/dl (31.0-36.0); Mean Corpuscular Hemoglobin 30.7 pg (27.0-33.0); Mean Platelet Volume 10.4 fL (9.4-12.4); Monocytes Absolute Auto 0.8 X10*3/uL (0.1-1.2); Monocytes Percent Auto 7.4 % (2-11); Neutrophils Percent Auto 66.2 % (45-73); Platelet Count 337 X10*3/uL (160-400); Red Blood Count 3.98 X10*6/uL (4.60-5.80); Red Cell Distribution Width 14.4 % (11.0-16.0); White Blood Count 10.6 X10*3/uL (4.8-10.8)
[2022-01-21 14:02] LABS: Iron 61 mcg/dL (45-160); Percent Iron Saturation 23 % (15-50); Total Iron Binding Capacity 270 mcg/dL (228-428); Unsaturated Iron Binding 209 ug/dL
[2022-01-21 14:47] LABS: Alanine Aminotransferase 32 U/L (0-40); Albumin Level 4.5 g/dL (3.5-5.0); Alkaline Phosphatase 92 U/L (39-117); Anion Gap 17 (12-20); Aspartate Amino Transferase 23 U/L (5-37); Bilirubin Total 0.3 mg/dL (0.0-1.0); Blood Urea Nitrogen 18 mg/dL (9-16); Calcium 9.2 mg/dL (8.4-10.2); Carbon Dioxide 24 mmol/L (22-29); Chloride 105 mmol/L (96-108); Estimated Glomerular Filt Rate > 60; Ferritin 121 ng/mL (20-250); Glucose Random 92 mg/dL (60-115); Potassium 4.6 mmol/L (3.3-5.1); Sodium 141 mmol/L (135-145); Total Protein 7.3 g/dL (6.5-8.0)
[2022-01-22 15:02] LABS: Transferrin 197 mg/dL (188-341)
== END 2022-01-21 10:34 | disposition home or self-care (01) ==
LOC: HO.10HDL 10:33
PROVIDERS: Visit Provider Nurse Practitioner Family
DX: D64.9 Anemia, unspecified (principal); G43.009 Migraine without aura, not intractable, without status migrainosus; Z87.828 Personal history of other (healed) physical injury and trauma
CPT/HCPCS: 36415; 80053; 82728; 83540; 84466; 85025; 99212

== ENCOUNTER 2022-02-10 07:19 | Outpatient (REF) | payer OTHER, SELFPAY ==
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
== END 2022-02-10 07:20 | disposition home or self-care (01) ==
LOC: HO.MRI 07:19
PROVIDERS: Visit Provider Nurse Practitioner Family
DX: G43.009 Migraine without aura, not intractable, without status migrainosus (principal); Z87.828 Personal history of other (healed) physical injury and trauma
CPT/HCPCS: 70551

== ENCOUNTER 2022-03-20 12:20 | Day surgery (SDC) | payer OTHER, SELFPAY ==
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
--- NOTE | ~2022-03-20 | FL_ITS ---
EXAMINATION: XR FLUOROSCOPY WITH IMAGES CLINICAL INFORMATION: Lumbar spinal cord stimulator trial. COMPARISON: Lumbar MR 09/26/2021 TECHNIQUE: Fluoroscopy Supervised By: Dr. Raymond Cano. Fluoroscopy Time: 3.6 minutes. Cumulative Dose: 77.4 mGy. DAP: 12.4 Gycm2. Images: 2. FINDINGS: There are 2 spinal stimulator electrodes seen ascending the posterior spinal canal. The electrode tips are at level of mid thoracic spine. There is no visible kinking or defect of the leads. There are mild multilevel degenerative disc changes mid thoracic spine. FL/FL guidance in OR IMPRESSION: Fluoroscopy for pain management procedure.
[2022-03-20 06:27] VITALS: BMI 24.3
[2022-03-20 12:33] VITALS: BP 104/67; PULSE 98; RESP 18; TEMP 36.6; O2SAT 99
--- NOTE | 2022-03-20 12:35 | P.HPSUR_ITS ---
Pre-Procedural Eval Section A Date of Service: 03/20/22 The patient is an INPATIENT: No Changes since office visit: Yes Patient answered all questions The History & Physical has been completed within 30 days and I have reviewed it.: No Section B Chief Complaint: Postlaminectomy syndrome,chronic pain syndrome Details of Present Illness: as above Relevant Family History (Specify if Yes): No Relevant Social History: None Present Medications: see Short Stay Collaborative assessment Medical History: No relevant PMH History of Previous Operations: Relevant previous surgery/procedure and date(s) Allergies: Allergies Allergy/AdvReac Type Severity Reaction Status Date / Time No Known Allergies Allergy Verified 02/17/22 14:34 Review of Systems Sugical H&P ROS: Negative: Constitution, Cardiovascular, Respiratory, Neurological, Psychiatric, Hem-Onc, Allergic/Immunologic, Gastrointestinal, Genitourinary, Musculoskeletal, Integumentary, Endocrine and Eyes/Ears/No se/Throat Exam Surgical H&P Exam: Normal: HEENT, Normal: Heart, Normal: Lungs, Normal: Extremities, Normal: Abdomen, Normal: Skin and Normal: Neurological Plan Diagnosis/Plan: Unchanged I have reviewed the history and physical and performed a pertinent physical examination on my patient. No changes have occurred unless specified. Time Spent With Patient Time: Total time managing care of this patient today _5___ minutes.
--- NOTE | 2022-03-20 12:41 | PC.NURSE ---
per dr sotck no mrsa screen needed
[2022-03-20] MEDS: Lactated Ringers 1,000 ML 100 ML IVCONT (12:48)
--- NOTE | 2022-03-20 14:55 | W.PM.OPN ---
Operative Note Operative Note Date of Service: 03/20/22 Narrative: Nimesh is a very pleasant 51 y.o. gentleman who came today into the operating room for trial of spinal cord stimulator [employer] for the treatment of postlaminectomy syndrome and chronic pain syndrome. Preoperatively patient received cefazolin 2 g approximately 10 minutes before the procedure. After obtaining informed consent the patient was brought to the operating room, HE was positioned prone on operating table, Citizen Of [place] [employer] monitors were applied and the patient was moderately sedated. Patient's entire back was prepped with Chloraprep twice and draped with full body fenestrated laparoscopy drape. Sterilely draped C-arm was brought over operating field and square picture of the T12-L1 L2 and L3 vertebrae were demonstrated on the screen Time-out was performed delineating correct site, side, the nature of the procedure, patient's allergy, preoperative antibiotic if needed. All operating room staff was participating in OR time-out procedure.After the time the patient developed laringospasm. the stretcher was brought back to the OR, the patient was ventilated and resuscitated by anesthesiology team. The patient was awaken and checked, he was responding appropriately. The decision was made to continue with the procedure under conscious sedation. Patient's entire back again was prepped with Chloraprep twice and draped with full body fenestrated laparoscopy drape. Sterilely draped C-arm was brought over operating field and square picture of the T12-L1 L2 and L3 vertebrae were demonstrated on the screen. extensive hardware from L3 to S1 was noted on the screen. Attention FIRST was concentrated on the T12- L1 epidural interspace. The location of the projection of the right pedicle center of the L2 vertebra was found on the skin using C-arm. This location was injected with mixture of lidocaine 2% and Marcaine 0.5% - 5 cc. After that 11 blade was used to make a savana on the skin. 10 cm 14 gauge introducer epidural needle was inserted through the savana and advanced to T12-L1 epidural interspace. The advancement of the needle was performed on anterior posterior and lateral views. Loss of resistance to air technique were used to locate epidural space., epidural lead was inserted through the needle and it was advanced to mid of T7 vertebra projection slightly right to the midline. Lateral view demonstrated the position of the lead in the strict posterior epidural space. . After that the location of the projection of the LEFT pedicle center of the L2 vertebra was found on the skin using C-arm. This location was injected with mixture of lidocaine 2% and Marcaine 0.5% 5 cc. After that 11 blade was used to make a savana on the skin. 10 cm 14 gauge introducer epidural needle was inserted through the savana and advanced [id number] epidural interspace. The advancement of the needle was performed on anterior posterior and lateral views. Guitar wire and loss of resistance to air technique were used to locate epidural space. When guitar wire was spread in the epidural fashion, epidural lead was inserted through the needle and advanced to the middle of T7 epidural interspace slightly left to the existing electrode.The position of the second electrode in the posterior epidural space was verified. Impedance was checked and was satisfactory . at this moment the epidural leads were connected to the testing wires and trial stimulation was performed. Patient was reporting stumulation corresponding to his low back and lower extremities pain. Impedance was checked and it was found to be satisfactory. Posterior lead placement was verified by lateral x-ray The stimulation was found to be corresponding to the patient's pain. The needles were withdrawn, the stylette wires were removed from the epidural leads. The anchoring devices were dislodged on the leads and advanced to the level of the skin. The anchoring devices were sutured with two 0-0 Silk sutures per each anchor to the skin of the patient. The central fixation screw of each anchor was rotated until three clicks were heard. The leads were connected to testing device. Bacitracin ointment was applied to the entrance point of bilateral wires. Sterile dressing was applied to the patient's back. The testing device was also taped to the patient's back. the patient tolerated procedure well he was awaken and taken outside of the operating room to recovery room. He continue to have mild cough but appeared to be OK and saturating well.
[2022-03-20 14:57] VITALS: BP 108/64; PULSE 101; RESP 16; TEMP 37; O2SAT 96
--- NOTE | 2022-03-20 15:06 | PM.OP ---
Brief Operative Note Date of Service: 03/20/22 Pre-op diagnosis: postlaminectomy syndrome, chronic pain syndrome. Post-op diagnosis: same Procedure: trial of [employer] SCS Surgeon: Raymond Cano MD Anesthesia: MAC Was an Emergency Manager used for this Procedure?: No Estimated blood loss (mL): 3 Condition: stable Disposition: PACU
[2022-03-20 15:13] VITALS: BP 128/87; PULSE 91; RESP 16; O2SAT 96
[2022-03-20 15:28] VITALS: BP 126/72; PULSE 94; RESP 18; O2SAT 98
== END 2022-03-20 15:50 | disposition home or self-care (01) ==
PROVIDERS: PCP Hospitalist; Visit Provider Anesthesiology
PROC: (CPT 63650; principal; 2022-03-20 13:20)
DX: M96.1 Postlaminectomy syndrome, not elsewhere classified (principal); G89.4 Chronic pain syndrome; M53.3 Sacrococcygeal disorders, not elsewhere classified; M54.16 Radiculopathy, lumbar region; M19.90 Unspecified osteoarthritis, unspecified site; D64.9 Anemia, unspecified; J38.5 Laryngeal spasm; R53.83 Other fatigue; E55.9 Vitamin D deficiency, unspecified; Z72.0 Tobacco use; F32.A Depression, unspecified; Z98.890 Other specified postprocedural states
CPT/HCPCS: 63650 ×2; C1713; C1778; J0690; J1569; J2250

== ENCOUNTER → 2022-03-27 08:57 | Outpatient (BNVA) | payer OTHER, SELFPAY | PROVIDERS: PCP Hospitalist; Visit Provider Anesthesiology | DX: M96.1 Postlaminectomy syndrome, not elsewhere classified (principal); M54.16 Radiculopathy, lumbar region; M53.3 Sacrococcygeal disorders, not elsewhere classified; M79.641 Pain in right hand; M79.642 Pain in left hand; G56.03 Carpal tunnel syndrome, bilateral upper limbs; G56.20 Lesion of ulnar nerve, unspecified upper limb; G89.4 Chronic pain syndrome | CPT/HCPCS: 99212 ==

== ENCOUNTER 2022-03-27 09:56 | Emergency (ER) | payer OTHER, SELFPAY ==
[2022-03-27 10:00] VITALS: BP 105/68; PULSE 65; RESP 18; TEMP 36.7; O2SAT 98; BMI 24.0
--- NOTE | 2022-03-27 10:03 | ECG_ITS ---
Test Reason : chest pain Blood Pressure : / mmHG Vent. Rate : 063 BPM Atrial Rate : 063 BPM P-R Int : 120 ms QRS Dur : 074 ms QT Int : 396 ms P-R-T Axes : 068 028 036 degrees QTc Int : 405 ms Poor data quality Normal sinus rhythm Normal ECG When compared with ECG of 27-JUL-2001 16:46, No significant change was found Referred By: Generic ED Physician Electronically Signed By:PEPE ANDERSEN MD
[2022-03-27 10:27] LABS: MANUAL DIFF FLAG NO
[2022-03-27 10:32] LABS: Basophils Percent Auto 0.5 % (0-2); Eosinophils Absolute Auto 0.9 X10*3/uL (0.0-0.4); Eosinophils Percent Auto 9.8 % (0-4); Hematocrit 37.6 % (42.0-52.0); Hemoglobin 12.4 g/dl (14.0-18.0); Imm Gran Abs Auto 0.03 X10*3/uL (0.00-0.03); Imm Gran Pct Auto 0.3 % (0.0-0.4); Lymphocytes Absolute Auto 1.7 X10*3/uL (1.2-4.9); Lymphocytes Percent Auto 19.3 % (20-40); Mean Corpuscular Hemoglobin 30.7 pg (27.0-33.0); Mean Corpuscular Volume 93.1 fL (80.0-98.0); Monocytes Absolute Auto 0.6 X10*3/uL (0.1-1.2); Monocytes Percent Auto 6.7 % (2-11); Neutrophils Absolute Auto 5.5 x10*3/uL (2.0-8.3); Neutrophils Percent Auto 63.4 % (45-73); Platelet Count 401 X10*3/uL (160-400); Red Blood Count 4.04 X10*6/uL (4.60-5.80); Red Cell Distribution Width 13.5 % (11.0-16.0); White Blood Count 8.7 X10*3/uL (4.8-10.8)
[2022-03-27 10:51] LABS: Anion Gap 9 (12-20); Blood Urea Nitrogen 16 mg/dL (9-16); Calcium 9.4 mg/dL (8.4-10.2); Carbon Dioxide 29 mmol/L (22-29); Chloride 106 mmol/L (96-108); Creatinine Clr Calc Pharmacy 101.8; Estimated Glomerular Filt Rate > 60; Glucose Random 98 mg/dL (60-115); Potassium 4.4 mmol/L (3.3-5.1); Sodium 140 mmol/L (135-145)
[2022-03-27 11:06] LABS: Troponin-I High Sensitivity < 3.5 ng/L (<3.5-35.0)
[2022-03-27 13:16] VITALS: BP 117/74; PULSE 80; RESP 16; O2SAT 99
--- NOTE | 2022-03-27 13:21 | ED_ITS ---
HPI - Chest Pain General Chief Complaint: Chest Pain Stated Complaint: chest pain into l arm Time Seen by Provider: 03/27/22 13:20 Source: patient Mode of arrival: ambulatory Limitations: no limitations History of Present Illness HPI narrative: 51-year-old male with history of high cholesterol, chronic back pain presents with intermittent chest pain. Patient reports chest pain is at rest and is often sharp and lasts several minutes and self-resolved. It is not associated with exertion he denies any associated shortness of breath, palpitations, diaphoresis, nausea or vomiting. No recent travel. No leg swelling or leg pain. No fevers or chills. Patient denies any smoking history, substance use history. Patient reports many years ago he did see a television production assistant for chest pain and had a negative stress test. Related Data Home Medications Medication Instructions Recorded Confirmed multivit,calc,mins-folic 240 1 tab PO DAILY 06/20/20 02/17/22 mcg-vit K1 30 mcg-lycopene 300 mcg tablet (One-A-Day Men's Complete) Probiotic 1 tab PO DAILY 10/12/20 02/17/22 ferrous fumarate 89 mg (29 mg 89 mg PO DAILY 11/06/20 02/17/22 iron) tablet Previous Rx's Medication Instructions Recorded magnesium oxide 400 mg (241.3 mg 400 mg PO BID #180 tabs 03/28/21 magnesium) tablet cholecalciferol (vitamin D3) 50 50 mcg PO DAILY #30 caps 04/29/21 mcg (2,000 unit) capsule rizatriptan 10 mg tablet 5 - 10 mg PO Q2H PRN migraine 12/19/21 headache 21 days #12 tabs topiramate 25 mg tablet 25 - 50 mg PO BEDTIME 30 days #60 12/19/21 tabs omeprazole 40 mg capsule,delayed 40 mg PO DAILY 30 days #30 caps 01/06/22 release riboflavin (vitamin B2) 400 mg 400 mg PO DAILY 30 days #30 tabs 01/06/22 tablet cephalexin 500 mg tablet 1,000 mg PO Q8H 7 days #42 tabs 03/20/22 Allergies Allergy/AdvReac Type Severity Reaction Status Date / Time No Known Allergies Allergy Verified 03/27/22 09:23 Review of Systems Review of Systems: Yes all other systems are reviewed and are negative Constitutional: Constitutional: Reports no additional constitutional complaints, Denies body ache(s), Denies chills, Denies fever(s), Denies headache(s) and Denies weakness Eyes: Eyes: Reports no additional eye complaints and Denies change in vision ENT: Reports system reviewed and no additional complaints, except as documented, Denies dizziness, Denies headache(s), Denies nasal congestion, Denies nasal discharge and Denies neck pain Cardiovascular: Cardiovascular: Reports no additional cardiovascular complaints, Reports chest pain, Denies leg edema and Denies dyspnea Respiratory: Respiratory: Reports no additional respiratory complaints, Denies cough and Denies dyspnea Gastrointestinal: Gastrointestinal: Reports no additional gastrointestinal complaints, Denies abdominal pain, Denies diarrhea, Denies nausea and Denies vomiting Genitourinary: Genitourinary: Denies urinary incontinence Musculoskeletal: Musculoskeletal: Reports no additional musculoskeletal complaints, Denies back pain, Denies arthralgias, Denies joint swelling, Denies neck pain, Denies numbness and Denies tingling Integumentary/Breasts: Skin/Breast: Reports system reviewed and no additional complaints, except as docu and Denies rash Neurologic: Reports system reviewed and no additional complaints, except as documented, Denies Abnormal speech present, Denies dizziness, Denies headache(s), Denies numbness, Denies tingling and Denies weakness PMFSH Past Medical History Attestation statement: The following information was validated with the patient. Source: old records reviewed and nursing notes reviewed Medical History Anemia Back pain Colitis Depression DJD (degenerative joint disease) Fatigue Knee pain Vitamin D deficiency Weight loss Surgical History H/O knee surgery History of appendectomy History of esophagogastroduodenoscopy (EGD) History of surgical amputation of finger of right hand Hx of colonoscopy Previous back surgery Previous back surgery Family History Family History Mother Heart disease Father Asthma Diabetes Heart disease Brother Asthma Diabetes Sister Asthma Diabetes Social History Social History Housing: House Alcohol intake: current Alcohol intake frequency: does not drink Alcohol type: beer Patient Tobacco Use Status: Never used Tobacco Tobacco use type: Cigar Cigarettes Per Day: 1 e-Cigarette/Vaping Use: Never Used Second Hand Smoke Exposure: Yes Advance Directives: No Advance Directives Information Provided: Yes Current occupational status: unemployed Cognitive needs: No Hearing needs: No Vision needs: Yes Physical Exam Vital Signs: Vital Signs: Last Vital Signs Temp 98.0 F 03/27/22 10:00 Pulse 80 03/27/22 13:16 Resp 16 03/27/22 13:16 BP 117/74 03/27/22 13:16 Pulse Ox 99 03/27/22 13:16 O2 Del Method 03/27/22 13:16 BMI result Body Mass Index 24.0 Const: General: cooperative, healthy appearing, comfortable and no acute distress Orientation/consciousness: patient oriented x3 Limitations: no limitations HEENT: Head: Yes normal to inspection Ears: hearing grossly normal bilatera lly General nose exam: Normal external nose present Face and sinus: Yes normal facial exam Mouth: Normal oral and palatal mucosa present Throat: Yes posterior oropharynx normal Eyes: General: appearance normal, both eyes and all related structures Pupils: Equal, round and reactive pupils present Neck: Neck: Yes normal visual inspection Chest: Chest palpation & inspection: normal inspection of the chest Resp: Effort & Inspection: normal respiratory effort Auscultation: clear to auscultation bilaterally Cardio: Rate: regular rate Rhythm: regular rhythm Peripheral pulses: Peripheral pulses 2+ throughout GI: Inspection: Yes normal to inspection Palpation (GI): Soft to palpation and nontender Auscultation: normal bowel sounds Back/Spine/Pelvis: Thoracic/Lumbar Spine: thoracic and lumbar spine normal to inspection Skin: General skin exam: no rashes or lesions noted Neuro: General: patient oriented x3, no focal motor deficits and normal sensation to monofilament Cranial nerves: Yes Equal, round and reactive p upils present Cognition (Neuro): normal cognition Speech: No Abnormal speech present Gait exam (Neuro): Normal gait present Motor exam (neuro): 5/5 motor strength present throughout Extrem: General: Yes normal to inspection, Yes no pedal edema and Yes no calf tenderness Course Course Course Narrative: Initial labs and EKG are negative. Patient with atypical symptoms for ACS. At this point he has no pain when a re-evaluate him. His vitals are stable. He can be discharged home to follow up with Cardiology outpatient as deemed appropriate by his primary care doctor. He should return for any worrisome signs or symptoms or any change in symptoms. This was discussed with the patient his family member. Reviewed worrisome signs and symptoms. Comfortable plan for discharge home. Medical Decision Making Medical Decision Making [facility] Narrative: 51-year-old male here with intermittent chest pain over the last few weeks which occurs at rest with no other associated symptoms who has a past medical history of high cholesterol. Seems atypical for ACS. Due to age will check labs, EKG Differential Diagnosis Differential Diagnoses: The differential diagnosis associated with the p resentation includes Less likely PE with no risk factors (no travel, surgery, OCP use, history or family history), no clinical findings concerning for DVT. No hypoxia, no tachypnea, no tachycardia Less likely ACS with atypical symptoms and negative troponin EKG. Admission/Observation Consideration of admission/observation: Escalation of care including admission/observation considered Heart score is 1 for history of high cholesterol. Lab Data [facility] Lab Attestation statement: I reviewed the patient's lab results. Result Diagrams: 03/27/22 10:20 03/27/22 10:20 Labs: Lab Results 03/27/22 03/27/22 03/27/22 Range/Units 10:20 10:20 10:20 WBC 8.7 (4.8-10.8) X10*3/uL RBC 4.04 L (4.60-5.80) X10*6/uL Hgb 12.4 L (14.0-18.0) g/dl Hct 37.6 L (42.0-52.0) % MCV 93.1 (80.0-98.0) fL MCH 30.7 (27.0-33.0) pg MCHC 33.0 (31.0-36.0) g/dl RDW 13.5 (11.0-16.0) % Plt Count 401 H (160-400) X10*3/uL MPV 9.0 L (9.4-12.4) fL Immature Gran % (Auto) 0.3 (0.0-0.4) % Neut % (Auto) 63.4 (45-73) % Lymph % (Auto) 19.3 L (20-40) % [place] % (Auto) 6.7 (2-11) % Eos % (Auto) 9.8 H (0-4) % Baso % (Auto) 0.5 (0-2) % Lymph # (Auto) 1.7 (1.2-4.9) X10*3/uL [place] # (Auto) 0.6 (0.1-1.2) X10*3/uL Eos # (Auto) 0.9 H (0.0-0.4) X10*3/uL Baso # (Auto) 0.0 (0.0-0.2) X10*3/uL Abs Immat Gran (auto) 0.03 (0.00-0.03) X10*3/uL Absolute Neuts (auto) 5.5 (2.0-8.3) x10*3/uL Absolute Nucleated RBC 0.000 (0.0-0.012) X10*3/uL Nucleated RBC % (auto) 0.0 (0.0-0.2) /100WBC Sodium 140 (135-145) mmol/L Potassium 4.4 (3.3-5.1) mmol/L Chloride 106 (96-108) mmol/L Carbon Dioxide 29 (22-29) mmol/L Anion Gap 9 L (12-20) BUN 16 (9-16) mg/dL Creatinine 0.83 (0.5-1.4) mg/dL Estim Creat Clear Calc 101.8 Estimated GFR > 60 Random Glucose 98 (60-115) mg/dL Calcium 9.4 (8.4-10.2) mg/dL Troponin I High Sens < 3.5 (<3.5-35.0) ng/L Independent Interpretation I performed an independent interpretation of an: EKG Interpretation: Normal sinus rhythm with a rate of 63, normal PA, normal QRS, normal QT Independent Historian Clinical information obtained from an independent historian. History obtained from or confirmed by: Spouse Discharge Plan Discharge Clinical Impression: Chest pain Patient Disposition: Home, Self-Care Instructions: Chest Pain (DC) Additional Instructions: Blood work and EKG are reassuring Please follow-up with primary care doctor and ask for referral to see Cardiology Please return for any worsening symptoms Prescriptions: No Action cholecalciferol (vitamin D3) 50 mcg (2,000 unit) capsule 50 mcg PO DAILY Qty: 30 0RF riboflavin (vitamin B2) 400 mg tablet 400 mg PO DAILY 30 Days Qty: 30 6RF omeprazole 40 mg capsule,delayed release(DR/EC) 40 mg PO DAILY 30 Days Qty: 30 3RF cephalexin 500 mg tablet 1,000 mg PO Q8H 7 Days Qty: 42 0RF Rx Instructions: take probiotics OTC 25 billion cultures in between the doses of the a ntibiotics. Probiotic 1 tab PO DAILY One-A-Day Men's Complete 240 mcg-30 mcg- 300 mcg tablet 1 tab PO DAILY magnesium oxide 400 mg (241.3 mg magnesium) tablet 400 mg PO BID Qty: 180 0RF ferrous fumarate 89 mg (29 mg iron) tablet 89 mg PO DAILY rizatriptan 10 mg tablet 5 - 10 mg PO Q2H PRN (Reason: migraine headache) 21 Days Qty: 12 3RF Rx Instructions: max 2 tabs per day or 4 tabs per week topiramate 25 mg tablet 25 - 50 mg PO BEDTIME 30 Days Qty: 60 3RF Referrals: So Hernandez NP [Primary Care Provider] - 1 week Interventions: ED Discharge Assessment Last Done: 03/27/22 13:27 Discharge Date/Time: 03/27/22 13:31
== END 2022-03-27 13:31 | disposition home or self-care (01) ==
PROVIDERS: Emergency Provider Student in an Organized Health Care Education/Training Program; PCP Hospitalist
DX: R07.9 Chest pain, unspecified (principal); E78.5 Hyperlipidemia, unspecified; F17.200 Nicotine dependence, unspecified, uncomplicated
CPT/HCPCS: 36415; 80048; 84484; 85025; 93005; 99282; 99283

== ENCOUNTER → 2022-04-07 08:05 | Outpatient (BNVA) | payer OTHER, SELFPAY | PROVIDERS: PCP Hospitalist; Visit Provider Anesthesiology | DX: M54.16 Radiculopathy, lumbar region (principal); M53.3 Sacrococcygeal disorders, not elsewhere classified; G89.4 Chronic pain syndrome; G56.20 Lesion of ulnar nerve, unspecified upper limb; G56.03 Carpal tunnel syndrome, bilateral upper limbs; M79.641 Pain in right hand; M79.642 Pain in left hand | CPT/HCPCS: 99212 ==

== ENCOUNTER → 2022-04-15 10:58 | Outpatient (BNVA) | payer OTHER, SELFPAY | PROVIDERS: PCP Family Medicine; Visit Provider Nurse Practitioner Family | DX: I63.81 Other cerebral infarction due to occlusion or stenosis of small artery (principal); J32.9 Chronic sinusitis, unspecified; G43.009 Migraine without aura, not intractable, without status migrainosus; D64.9 Anemia, unspecified; E78.5 Hyperlipidemia, unspecified; Z87.898 Personal history of other specified conditions | CPT/HCPCS: 99212 ==

== ENCOUNTER 2022-04-25 14:00 | Outpatient (REF) | payer OTHER, SELFPAY ==
--- NOTE | ~2022-04-25 | XR_ITS ---
EXAMINATION: XR SHOULDER, LEFT CLINICAL INFORMATION: Pain. COMPARISON: CT chest, abdomen and pelvis 08/20 2021. TECHNIQUE: Three views of the left shoulder. FINDINGS: There is mild acromioclavicular osteoarthritis. Glenohumeral joint is well preserved. No fracture. Alignment is anatomic. Soft tissues are normal with no abnormal calcifications. XR/XR shoulder LT min 2V IMPRESSION: 1. No acute fractures or malalignment. 2. Mild acromioclavicular osteoarthritis.
== END 2022-04-25 14:01 | disposition home or self-care (01) ==
LOC: HO.HOSX 14:00
PROVIDERS: PCP Family Medicine; Visit Provider Orthopaedic Surgery
DX: G56.02 Carpal tunnel syndrome, left upper limb (principal); G56.22 Lesion of ulnar nerve, left upper limb
CPT/HCPCS: 73030; 99212

== ENCOUNTER → 2022-05-05 13:06 | Outpatient (BNVA) | payer OTHER, SELFPAY | PROVIDERS: PCP Family Medicine; Visit Provider Internal Medicine | DX: R07.2 Precordial pain (principal); I63.81 Other cerebral infarction due to occlusion or stenosis of small artery | CPT/HCPCS: 93005; 99202 ==

== ENCOUNTER 2022-05-06 15:23 | Outpatient (REF) | payer OTHER, SELFPAY ==
--- NOTE | ~2022-05-06 | US_ITS ---
EXAMINATION: US EXTRACRANIAL CAROTID DUPLEX, BILATERAL CLINICAL INFORMATION: Cerebral infarction. COMPARISON: None TECHNIQUE: Real-time ultrasound and Doppler techniques (integrating B-mode 2-D vascular images, Doppler spectral analysis and color-flow Doppler imaging) were utilized to interrogate the extracranial carotid arteries, the vertebral arteries and proximal subclavian arteries bilaterally. The degree of stenosis is determined by criteria similar to NASCET. FINDINGS: Right Side: 1. There is no atherosclerotic plaque seen in the bifurcation/proximal ICA region. 2. The common carotid artery PSV proximally is 74 cm/s and distally 60 cm/s. 3. The proximal internal carotid artery velocities are 45 cm/s systolic and 12 cm/s diastolic. 4. The proximal external carotid artery PSV is 79 cm/s. 5. The vertebral artery shows antegrade flow. 6. The subclavian artery waveforms are normal. Left Side: 1. There is no atherosclerotic plaque seen in the bifurcation/proximal ICA region. 2. The common carotid artery PSV proximally is 79 cm/s and distally 56 cm/s. 3. The proximal internal carotid artery velocities are 38 cm/s systolic and 16 cm/s diastolic. 4. The proximal external carotid artery PSV is 52 cm/s. 5. The vertebral artery shows anterior flow. 6. The subclavian artery waveforms are normal. US/US carotid duplex BI IMPRESSION: 1. RIGHT: Normal right internal carotid artery without atherosclerotic plaque or hemodynamically significant stenosis. 2. LEFT: Normal left internal carotid artery without atherosclerotic plaque or hemodynamically significant stenosis.
== END 2022-05-06 15:24 | disposition home or self-care (01) ==
LOC: HO.US 15:23
PROVIDERS: Visit Provider Nurse Practitioner Family
DX: D64.9 Anemia, unspecified (principal); E78.5 Hyperlipidemia, unspecified; R51.9 Headache, unspecified; Z86.73 Personal history of transient ischemic attack (TIA), and cerebral infarction without residual deficits
CPT/HCPCS: 93880

== ENCOUNTER → 2022-05-12 12:56 | Outpatient (REF) | payer OTHER, SELFPAY ==
--- NOTE | 2022-05-12 12:59 | CA_ITS ---
Transthoracic Echocardiogram Patient (Last, First, Middle): Nimesh Velez A Gender: Male Date of : 1970 Age: 51 Procedure Date: 05/12/2022 Procedure Type: Transthoracic Echocardiogram Location: OP Height: 172.72 cm Weight: 72.58 kg BSA: 1.86 m2 Heart Rate: bpm BP: 98 / 68 mmHg [employer]el Powerplant Mechanic: JOSE Referring MD: Sukumar Lynne MD Symptoms: I63.81 - Other cerebral infarction due to occlusion or stenosis of small... Study Quality: Adequate ECG Rhythm: Sinus Conclusions: - The left ventricular systolic function is normal. The calculated ejection fraction is 56% by biplane method. - No obvious valvular pathology seen on this study. Findings Left Ventricle Normal left ventricular cavity size. There is mildly increased left ventricular wall thickness. The left ventricular systolic function is normal. The calculated ejection fraction is 56% by biplane method. There is no evidence of regional wall motion abnormalities. Diastolic function is normal for age. LV peak GLS -15.8%. Right Ventricle Normal right ventricular cavity size and systolic function. Atria Both atria are normal in size. Aortic Valve There is a normal trileaflet aortic valve. There is no aortic valve stenosis. There is no aortic valve regurgitation. Mitral Valve The mitral valve appears normal. There is trace mitral valve regurgitation. There is no mitral valve stenosis. Pulmonic Valve The pulmonic valve is likely normal. Tricuspid Valve There is mild tricuspid valve regurgitation. There is no evidence of pulmonary hypertension. Great Vessels The asc aorta is normal in size. Venous The inferior vena cava is normal in size and collapses greater than 50% with inspiration. Pericardium/Pleural There is no evidence of pericardial effusion. Prior Study Comparison No significant change compared to prior study dated: 09/19/2013. Recommendations, Care & Conclusions No obvious valvular pathology seen on this study. Measurements 2D Linear Measurements IVSd: 1.07 0.6-0.9/0.6-1.0 cm LVIDd: 4.56 3.9-5.3/4.2-5.9 cm LVIDd Index: 2.45 2.4-3.2/2.2-3.1 cm/m2 LVIDs: 3.09 2.0-3.6 cm LVPWd: 1.02 0.7-1.1 cm LA Diam: 2.90 2.7-3.8/3.0-4.0 cm LAIDs Index: 1.56 1.5-2.3 cm/m2 LV Mass: 207.23 67-162/88-224 g LV Mass Index: 111.41 43-95/49-115 g/m2 LVOT Diam: 2.00 3.0+(-)1.3 cm 2D Systolic Function EF 4C: 58.00 >55% EF 2C: 56.80 >55% EF BiP: 56.10 >55% Mitral Valve MV Pk E: 0.68 MV PK A: 0.66 MV Decel Time: 264.00 E/A: 1.00 E'Lateral: 11.60 E'Medial: 8.38 E/E' Med: 8.20 E/E' Lat: 5.90 PHT: 77.00 MVA PHT: 2.86 Decel Ward: 2.59 Aortic Valve AoV Pk Lamberto: 1.26 AoV Mn Lamberto: 0.86 AoV VTI: 0.26 AoV Pk Grad: 6.00 Aov Mn Grad: 3.00 SHALONDA Cont.VTI: 2.40 LVOT LVOT Pk Lamberto: 0.97 LVOT Mn Lamberto: 0.63 LVOT VTI: 0.20 LVOT Pk Grad: 4.00 LVOT Mn Grad: 2.00 LVOT Diam: 2.00 LVOT Area: 3.14 Diastolic Function MV Pk E: 0.68 MV Pk A: 0.66 E/A: 1.00 E'Medial: 8.38 E/E' Med: 8.20 E' Laterial: 11.60 E/E' Lat: 5.90 Right Ventricle TAPSE (mm): 24.90 TVS' Lamberto: 10.90 Tricuspid Valve TR Pk Lamberto: 2.51 TR Pk Grad: 25.00 RA Press: 3.00 RVSP: 28.00 Great Vessels Aorta Sinus of Valsalva: 3.63 2.0-3.[address] [place]: 2.98 1.7-3.4 cm Ao Asc: 3.30 2.1-3.4 cm Updated in Other Vendor System with Status of Final Sukumar Lynne MD electronically signed on 05/12/2022 5:09:21 PM with status of Final
== END ==
LOC: HO.CARD 12:56
PROVIDERS: Visit Provider Internal Medicine
DX: Z86.73 Personal history of transient ischemic attack (TIA), and cerebral infarction without residual deficits (principal)
CPT/HCPCS: 93306; 93356

== ENCOUNTER → 2022-05-29 09:03 | Outpatient (BNVA) | payer OTHER, SELFPAY | PROVIDERS: PCP Family Medicine; Visit Provider Nurse Practitioner Family | DX: I63.81 Other cerebral infarction due to occlusion or stenosis of small artery (principal); G43.909 Migraine, unspecified, not intractable, without status migrainosus; J32.9 Chronic sinusitis, unspecified; Z87.828 Personal history of other (healed) physical injury and trauma | CPT/HCPCS: 99211 ==

== ENCOUNTER 2022-06-12 14:07 | Emergency (ER) | payer OTHER, SELFPAY ==
--- NOTE | ~2022-06-12 | US_ITS ---
EXAMINATION: US SCROTUM CLINICAL INFORMATION: Right testicular pain and swelling. COMPARISON: None available. TECHNIQUE: A sonogram of the scrotum was performed assessing yin-scale appearance and color Doppler flow. Spectral Doppler analysis of the arterial and venous flow were performed in the testes bilaterally. FINDINGS: RIGHT: Right testicle measures 4.1 x 1.9 x 2.6 cm, volume 10.4 mL. No focal testicular parenchymal lesions are visualized. Spectral Doppler analysis of the arterial and venous flow is normal in the right testis. Lateral to the right scrotum there is a round area echogenic mobile debris questioning inguinal hernia. Right epididymal head is normal in size. Incidental finding of a right appendix epididymis is noted. No right hydrocele or varicocele is seen. Right epididymal Doppler flow is normal. LEFT: Left testicle measures 4.0 x 2.1 x 2.4 cm, volume 10.6 mL. No focal testicular parenchymal lesions are visualized. Spectral Doppler analysis of the arterial and venous flow is normal in the left testis. Left epididymal head is normal in size. Incidental finding of a left appendix epididymis is noted. No left hydrocele or varicocele is seen. Left epididymal Doppler flow is normal. US/US scrotum IMPRESSION: Normal bilateral testes and epididymides. Incidental finding of bilateral appendix epididymis. Mobile round mobile echogenic debris within right scrotum lateral to the testes suspicious for hernia.
--- NOTE | ~2022-06-12 | US_ITS ---
EXAMINATION: US SCROTUM CLINICAL INFORMATION: Right testicular pain and swelling. COMPARISON: None available. TECHNIQUE: A sonogram of the scrotum was performed assessing yin-scale appearance and color Doppler flow. Spectral Doppler analysis of the arterial and venous flow were performed in the testes bilaterally. FINDINGS: RIGHT: Right testicle measures 4.1 x 1.9 x 2.6 cm, volume 10.4 mL. No focal testicular parenchymal lesions are visualized. Spectral Doppler analysis of the arterial and venous flow is normal in the right testis. Lateral to the right scrotum there is a round area echogenic mobile debris questioning inguinal hernia. Right epididymal head is normal in size. Incidental finding of a right appendix epididymis is noted. No right hydrocele or varicocele is seen. Right epididymal Doppler flow is normal. LEFT: Left testicle measures 4.0 x 2.1 x 2.4 cm, volume 10.6 mL. No focal testicular parenchymal lesions are visualized. Spectral Doppler analysis of the arterial and venous flow is normal in the left testis. Left epididymal head is normal in size. Incidental finding of a left appendix epididymis is noted. No left hydrocele or varicocele is seen. Left epididymal Doppler flow is normal. US/US scrotum doppler IMPRESSION: Normal bilateral testes and epididymides. Incidental finding of bilateral appendix epididymis. Mobile round mobile echogenic debris within right scrotum lateral to the testes suspicious for hernia.
--- NOTE | ~2022-06-12 | CT_ITS ---
EXAMINATION: CT PELVIS WITHOUT CONTRAST CLINICAL INFORMATION: Unilateral pain. Rule out hernia. COMPARISON: None available. TECHNIQUE: Helical scanning was performed with submillimeter collimation through the pelvis. Sagittal and coronal multiplanar 2-D reconstructions were obtained. This CT examination was performed using dose optimization techniques as appropriate, variously including the following: *Automated exposure control *Adjustment of mA and/or kV according to patient size (this includes techniques or standardized protocols for targeted exams where dose is matched to indication/reason for exam; i.e. extremities or head) *Use of iterative reconstruction technique DLP: 365 mGy-cm FINDINGS: PELVIS: There is scattered stool and diverticuli in the visualized colon without distention. The small bowel loops are normal caliber. Appendix is likely normal caliber. No free air or free fluid seen. There is no pelvic mass. The bladder is nondistended. Small shotty lymph nodes are seen in the inguinal region measuring 35 Hounsfield units. There is a 3.9 cm soft tissue density adjacent to right inguinal canal measuring 28 Hounsfield units. There is mild fat stranding. The left inguinal canal appears unremarkable. OSSEOUS STRUCTURES: No gross bony abnormality seen. CT/CT pelvis wo IV con IMPRESSION: Biconvex 3.9 cm along soft tissue lesion lateral to the right inguinal canal extending to the roof of the scrotum. The density is suspicious for likely hematoma, complex fluid or inflammatory lymph node. There is adjacent fat stranding. There is no inguinal hernia.
[2022-06-12 14:11] VITALS: BP 104/64; PULSE 95; RESP 18; TEMP 36.6; O2SAT 98; BMI 24.3
--- NOTE | 2022-06-12 14:11 | ED.GENADULT ---
HPI - General Adult General Chief complaint: General Medical <IRISH Bueno - Last Filed: 06/12/22 18:32> Stated complaint: Headache [id number] <IRISH Bueno - Last Filed: 06/12/22 18:32> Time Seen by Provider: 06/12/22 18:48 <IRISH Bueno - Last Filed: 06/12/22 18:32> Source: patient <Soheila Yeung MD - Last Filed: 06/13/22 00:38> Mode of arrival: ambulatory <Soheila Yeung MD - Last Filed: 06/13/22 00:38> Limitations: no limitations <Soheila Yeung MD - Last Filed: 06/13/22 00:38> History of Present Illness HPI narrative: patient comes to the emergency room complaining of 2 months of intermittent right inguinal pain. Patient states that over the last 3 days, patient has had Pain that gets much worse with any hip movement Patient denies any URI or UTI symptoms. It was noted in triage the patient's temperature was 101.4 degrees. patient also complaining of migraine headaches. Patient states that for last 2 months they have been more intermittent. Patient did not have a headache today until he got to the emergency room. Patient complaining of photophobia, nausea or vomiting. <Soheila Yeung MD - Last Filed: 06/13/22 00:38> Related Data Home medications: Home Medications Medication Instructions Recorded Confirmed multivit,calc,mins-folic 240 1 tab PO DAILY 06/20/20 05/05/22 mcg-vit K1 30 mcg-lycopene 300 mcg tablet (One-A-Day Men's Complete) Probiotic 1 tab PO DAILY 10/12/20 05/05/22 ferrous fumarate 89 mg (29 mg 89 mg PO DAILY 11/06/20 05/05/22 iron) tablet fluticasone propionate 50 1 spray intranasal Q12H PRN 04/15/22 05/05/22 mcg/actuation nasal spray,suspension (Flonase Allergy Relief) Previous Rx's Medication Instructions Recorded magnesium oxide 400 mg (241.3 mg 400 mg PO BID #180 tabs 03/28/21 magnesium) tablet aspirin 81 mg chewable tablet 81 mg PO DAILY 30 days #30 tabs 04/15/22 propranolol 60 mg capsule,24 60 mg PO BEDTIME 30 days #30 caps 04/15/22 hr,extended release cyproheptadine 4 mg tablet 4 - 8 mg PO BEDTIME 30 days #60 05/23/22 tabs cholecalciferol (vitamin D3) 50 50 mcg PO DAILY #30 caps 06/04/22 mcg (2,000 unit) capsule erenumab-aooe 140 mg/mL 140 mg subcut ONCE 30 days #30 mL 06/10/22 subcutaneous auto-injector (Aimovig Autoinjector) levofloxacin 500 mg tablet 500 mg PO DAILY #9 tabs 06/13/22 naproxen 500 mg tablet (Naprosyn) 500 mg PO BID PRN pain #10 tabs 06/13/22 sumatriptan succinate 50 mg tablet 50 mg PO Q2-4H PRN migraine 06/13/22 headache #10 tabs <IRISH Bueno - Last Filed: 06/12/22 18:32> Allergies/adverse reactions: Allergies Allergy/AdvReac Type Severity Reaction Status Date / Time No Known Allergies Allergy Verified 05/29/22 09:06 <IRISH Bueno - Last Filed: 06/12/22 18:32> Review of Systems Review of Systems: Constitutional : No Weight loss, No Fever, No Chills, No Night Sweats, No Fatigue, No Malaise ENT/Mouth : No Hearing loss, No Ear Pain, No Nasal Congestion, No Sinus Pain, No Hoarseness, No sore throat, No Rhinorrhea, No Swallowing Difficulty Eyes: No Eye Pain, No Swelling, No Redness, No Foreign Body, No Discharge, No Vision Changes Cardiovascular : No Chest Pain, No SOB, No Dyspnea on Exertion, No Orthopnea, No Edema, No Palpitations Respiratory : No Cough, No Sputum, No Wheezing, No Smoke Exposure, No Dyspnea Gastrointestinal : No Nausea, No Vomiting, No Diarrhea, No Constipation, No abdominal Pain, No Hematochezia, No Melena Genitourinary : complaining of right testicular and right inguinal pain,No Dysuria, No Urinary Frequency, No Hematuria, No Urinary Incontinence, No Urgency, No Flank Pain, No Urinary Flow Changes, No Hesitancy Musculoskeletal : No joint pain, No Myalgias, No Joint Swelling Skin : No Skin Lesions, No rash Neuro : No Weakness, No Numbness, No Paresthesias, No Loss of Consciousness, No Dizziness, No Headache Psych : No Anxiety/Panic, No Depression, No SI/HI/AH/VH, No Social Issues, Heme/Lymph: No Bruising, No Bleeding,No Lymphadenopathy Endocrine : No Polyuria, No Polydipsia, No Temperature Intolerance <Soheila Yeung MD - Last Filed: 06/13/22 00:38> [facility] Past Medical History Medical History: Medical History Anemia Back pain Colitis Depression DJD (degenerative joint disease) Fatigue Knee pain Vitamin D deficiency Weight loss <IRISH Bueno - Last Filed: 06/12/22 18:32> Surgical History: Surgical History H/O knee surgery History of appendectomy History of esophagogastroduodenoscopy (EGD) History of surgical amputation of finger of right hand Hx of colonoscopy Previous back surgery Previous back surgery <IRISH Bueno - Last Filed: 06/12/22 18:32> Family History Family History: Family History Mother Heart disease Father Asthma Diabetes Heart disease Brother Asthma Diabetes Sister Asthma Diabetes <IRISH Bueno - Last Filed: 06/12/22 18:32> Social History Social History: Social History (Updated 05/29/22 @ 09:09 by Marisol Aguilar [facility]) Housing: House Are you a primary care nurse rn to a significant other at home: No Do you presently have visiting nurse or other home services: No Alcohol intake: current Alcohol intake frequency: does not drink Alcohol type: beer Patient Tobacco Use Status: Former Tobacco user Tobacco use type: Cigar Smoked in Last 30 Days: No e-Cigarette/Vaping Use: Never Used Second Hand Smoke Exposure: Yes Use of substances other than those prescribed or required for medical reasons: No Advance Directives: No Advance Directives Information Provided: No Current occupational status: unemployed Cognitive needs: No Hearing needs: No Vision needs: Yes <IRISH Bueno - Last Filed: 06/12/22 18:32> Physical Exam ED Vital Signs: Vital Signs - 24 hr 06/12/22 14:11 06/12/22 17:43 06/12/22 22:04 Temperature 98 F 101.4 F H 99.0 F Pulse Rate 95 94 111 H Respiratory Rate 18 20 18 Blood Pressure 104/64 118/67 122/60 Pulse Oximetry 98 96 95 Oxygen Delivery Method Room Air Room Air 06/13/22 00:02 Temperature 99.3 F Pulse Rate 97 Respiratory Rate 16 Blood Pressure 111/57 L Pulse Oximetry 95 Oxygen Delivery Method Room Air BMI result Body Mass Index 24.3 <IRISH Bueno - Last Filed: 06/12/22 18:32> Vital Signs - 24 hr 06/12/22 14:11 06/12/22 17:43 06/12/22 22:04 Temperature 98 F 101.4 F H 99.0 F Pulse Rate 95 94 111 H Respiratory Rate 18 20 18 Blood Pressure 104/64 118/67 122/60 Pulse Oximetry 98 96 95 Oxygen Delivery Method Room Air Room Air 06/13/22 00:02 Temperature 99.3 F Pulse Rate 97 Respiratory Rate 16 Blood Pressure 111/57 L Pulse Oximetry 95 Oxygen Delivery Method Room Air BMI result Body Mass Index 24.3 <Soheila Yeung MD - Last Filed: 06/13/22 00:38> Const Other: Appearance: Alert. Oriented X3. No acute distress. Eyes: Pupils equal, round and reactive to light. ENT: Pharynx normal. Neck: Normal inspection. Neck supple. No lymph nodes noted. No crepitus CVS: Normal heart rate and rhythm. Pulses normal. Normal S1 and S2 Respiratory: No respiratory distress. Breath sounds normal. No Wheezing. No rales Abdomen: Soft and nontender. No rigidity. No distention. : Palpable mass to the right inguinal canal, positive testicular tenderness on palpation on the right Skin: Skin warm and dry. Normal skin color. Normal skin turgor. Extremities: No lower extremity edema. No Lacerations. No Rash Neuro: Oriented X 3. No motor deficit. No sensory deficit. Moving all extremities. No slurred speech. CN 2 through 12 grossly intact Psych: calm, cooperative, normal affect <Soheila Yeung MD - Last Filed: 06/13/22 00:38> Course Course Course Narrative: RME--51yo M w/PMHx migraines, anemia, colitis, DJD, c/o MAGANA x 1 mos, with lightheadedness/pre-syncope this AM. Admits sx resolved at present. Also reports sinus pressure and right testicular lump/?abscess x6 mos. Admits to growing. Denies redness and drainage MAGANA not maximal at onset EKG, Labs, UA, CTNG, COVID/FLU ordered Eval to be perfomed by ED provider <IRISH Bueno - Last Filed: 06/12/22 18:32> Medications Administered Discontinued Medications Generic Name Dose Route Start Last Admin Trade Name Freq PRN Reason Stop Dose Admin Sodium Chloride 1,000 mls @ 999 mls/hr 06/12/22 18:45 06/12/22 21:11 Ns IV 06/12/22 19:45 Infused .Q1H1M DANIEL Infusion Morphine Sulfate 4 mg 06/12/22 22:13 06/12/22 22:21 Morphine Sulfate 4 Mg/Ml Cartridge IVPUSH 06/12/22 22:14 4 mg ONCE ONE Administration Protocol <IRISH Bueno - Last Filed: 06/12/22 18:32> Medications Administered Discontinued Medications Generic Name Dose Route Start Last Admin Trade Name Freq PRN Reason Stop Dose Admin Sodium Chloride 1,000 mls @ 999 mls/hr 06/12/22 18:45 06/12/22 21:11 Ns IV 06/12/22 19:45 Infused .Q1H1M DANIEL Infusion Morphine Sulfate 4 mg 06/12/22 22:13 06/12/22 22:21 Morphine Sulfate 4 Mg/Ml Cartridge IVPUSH 06/12/22 22:14 4 mg ONCE ONE Administration Protocol <Soheila Yeung MD - Last Filed: 06/13/22 00:38> Medical Decision Making Medical Decision Making MDM Narrative: - scrotal ultrasound does not show any testicular abnormality. However, seems the patient has a hernia in the inguinal canal. CT scan has been ordered to rule out incarcerated hernia - CT scan does not show hernia, shows a soft tissue lesion, likely hematoma versus complex fluid or inflammatory lymph node. - Patient receiving IV levofloxacin. - I discussed the patient with Dr. Schultz from Urology. Patient to receive antibiotics, pain medication and can be discharged with follow-up with Urology - Also, patient complaining of chronic migraines. Patient states that he was doing well before coming to the hospital and when he got here, he started having a migraine headache. patient received morphine, IV fluids. dose of Dilaudid. Patient instructed to follow-up with his primary care physician and Neurology for chronic headaches for 2 months. Patient has no neurological deficits <Soheila Yeung MD - Last Filed: 06/13/22 00:38> Differential Diagnosis Differential Diagnoses: The differential diagnosis associated with the presentation includes ( Incarcerated hernia, testicular torsion, abscess, cellulitis, Ana gangrene) <Soheila Yeung MD - Last Filed: 06/13/22 00:38> Consult Healthcare Provider Management of the patient was discussed with: Drain Tile Machine Operator <Soheila Yeung MD - Last Filed: 06/13/22 00:38> Lab Data MDM Lab Attestation statement: I reviewed the patient's lab results. <Soheila Yeung MD - Last Filed: 06/13/22 00:38> Result Diagrams: 06/12/22 14:29 06/12/22 14:29 <IRISH Bueno - Last Filed: 06/12/22 18:32> Labs: Lab Results 06/12/22 06/12/22 06/12/22 Range/Units 14:29 14:29 14:29 WBC 16.7 H (4.8-10.8) X10*3/uL RBC 3.98 L (4.60-5.80) X10*6/uL Hgb 12.0 L (14.0-18.0) g/dl Hct 35.8 L (42.0-52.0) % MCV 89.9 (80.0-98.0) fL MCH 30.2 (27.0-33.0) pg MCHC 33.5 (31.0-36.0) g/dl RDW 14.0 (11.0-16.0) % Plt Count 375 (160-400) X10*3/uL MPV 8.9 L (9.4-12.4) fL Immature Gran % (Auto) 0.4 (0.0-0.4) % Neut % (Auto) 82.5 H (45-73) % Lymph % (Auto) 8.8 L (20-40) % Treasure % (Auto) 6.5 (2-11) % Eos % (Auto) 1.6 (0-4) % Baso % (Auto) 0.2 (0-2) % Lymph # (Auto) 1.5 (1.2-4.9) X10*3/uL [place] # (Auto) 1.1 (0.1-1.2) X10*3/uL Eos # (Auto) 0.3 (0.0-0.4) X10*3/uL Baso # (Auto) 0.0 (0.0-0.2) X10*3/uL Abs Immat Gran (auto) 0.06 H (0.00-0.03) X10*3/uL Absolute Neuts (auto) 13.7 H (2.0-8.3) x10*3/uL Absolute Nucleated RBC 0.000 (0.0-0.012) X10*3/uL Nucleated RBC % (auto) 0.0 (0.0-0.2) /100WBC Sodium (135-145) mmol/L Potassium (3.3-5.1) mmol/L Chloride (96-108) mmol/L Carbon Dioxide (22-29) mmol/L Anion Gap (12-20) BUN (9-16) mg/dL Creatinine (0.5-1.4) mg/dL Estim Creat Clear Calc Estimated GFR Random Glucose (60-115) mg/dL Lactic Acid (0.5-2.0) mmol/L Calcium (8.4-10.2) mg/dL Magnesium (1.6-2.6) mg/dL Total Bilirubin (0.0-1.0) mg/dL Direct Bilirubin (0.0-0.5) mg/dL AST (5-37) U/L ALT (0-40) U/L Alkaline Phosphatase (39-117) U/L Troponin I High Sens (<3.5-35.0) ng/L Total Protein (6.5-8.0) g/dL Albumin (3.5-5.0) g/dL Urine Color Urine Appearance Urine pH (5.0-9.0) Ur Specific [place] (1.005-1.025) Urine Protein (Neg-Trace) mg/dL Urine Glucose (UA) (Negative) mg/dL Urine Ketones (Negative) mg/dL Urine Blood (Negative) Urine Nitrite (Negative) Ur Leukocyte Esterase (Negative) COVID-19 ([place]) Negative (Negative) COVID-19 Clin Com See Note Influenza Type A ([place]) Negative (Negative) Influenza Type B ([place]) Negative (Negative) Influenza A & B Note See Note 06/12/22 06/12/22 06/12/22 Range/Units 14:29 14:29 19:24 WBC (4.8-10.8) X10*3/uL RBC (4.60-5.80) X10*6/uL Hgb (14.0-18.0) g/dl Hct (42.0-52.0) % MCV (80.0-98.0) fL MCH (27.0-33.0) pg MCHC (31.0-36.0) g/dl RDW (11.0-16.0) % Plt Count (160-400) X10*3/uL MPV (9.4-12.4) fL Immature Gran % (Auto) (0.0-0.4) % Neut % (Auto) (45-73) % Lymph % (Auto) (20-40) % Treasure % (Auto) (2-11) % Eos % (Auto) (0-4) % Baso % (Auto) (0-2) % Lymph # (Auto) (1.2-4.9) X10*3/uL [place] # (Auto) (0.1-1.2) X10*3/uL Eos # (Auto) (0.0-0.4) X10*3/uL Baso # (Auto) (0.0-0.2) X10*3/uL Abs Immat Gran (auto) (0.00-0.03) X10*3/uL Absolute Neuts (auto) (2.0-8.3) x10*3/uL Absolute Nucleated RBC (0.0-0.012) X10*3/uL Nucleated RBC % (auto) (0.0-0.2) /100WBC Sodium 139 (135-145) mmol/L Potassium 3.8 (3.3-5.1) mmol/L Chloride 105 (96-108) mmol/L Carbon Dioxide 26 (22-29) mmol/L Anion Gap 12 (12-20) BUN 17 H (9-16) mg/dL Creatinine 0.84 (0.5-1.4) mg/dL Estim Creat Clear Calc 100.6 Estimated GFR > 60 Random Glucose 146 H (60-115) mg/dL Lactic Acid 0.5 (0.5-2.0) mmol/L Calcium 9.0 (8.4-10.2) mg/dL Magnesium 1.9 (1.6-2.6) mg/dL Total Bilirubin 0.8 (0.0-1.0) mg/dL Direct Bilirubin 0.2 (0.0-0.5) mg/dL AST 17 (5-37) U/L ALT 15 (0-40) U/L Alkaline Phosphatase 72 (39-117) U/L Troponin I High Sens < 3.5 (<3.5-35.0) ng/L Total Protein 6.9 (6.5-8.0) g/dL Albumin 4.2 (3.5-5.0) g/dL Urine Color Urine Appearance Urine pH (5.0-9.0) Ur Specific [place] (1.005-1.025) Urine Protein (Neg-Trace) mg/dL Urine Glucose (UA) (Negative) mg/dL Urine Ketones (Negative) mg/dL Urine Blood (Negative) Urine Nitrite (Negative) Ur Leukocyte Esterase (Negative) COVID-19 ([place]) (Negative) COVID-19 Clin Com Influenza Type A ([place]) (Negative) Influenza Type B ([place]) (Negative) Influenza A & B Note 06/12/22 Range/Units 22:10 WBC (4.8-10.8) X10*3/uL RBC (4.60-5.80) X10*6/uL Hgb (14.0-18.0) g/dl Hct (42.0-52.0) % MCV (80.0-98.0) fL MCH (27.0-33.0) pg MCHC (31.0-36.0) g/dl RDW (11.0-16.0) % Plt Count (160-400) X10*3/uL MPV (9.4-12.4) fL Immature Gran % (Auto) (0.0-0.4) % Neut % (Auto) (45-73) % Lymph % (Auto) (20-40) % Treasure % (Auto) (2-11) % Eos % (Auto) (0-4) % Baso % (Auto) (0-2) % Lymph # (Auto) (1.2-4.9) X10*3/uL [place] # (Auto) (0.1-1.2) X10*3/uL Eos # (Auto) (0.0-0.4) X10*3/uL Baso # (Auto) (0.0-0.2) X10*3/uL Abs Immat Gran (auto) (0.00-0.03) X10*3/uL Absolute Neuts (auto) (2.0-8.3) x10*3/uL Absolute Nucleated RBC (0.0-0.012) X10*3/uL Nucleated RBC % (auto) (0.0-0.2) /100WBC Sodium (135-145) mmol/L Potassium (3.3-5.1) mmol/L Chloride (96-108) mmol/L Carbon Dioxide (22-29) mmol/L Anion Gap (12-20) BUN (9-16) mg/dL Creatinine (0.5-1.4) mg/dL Estim Creat Clear Calc Estimated GFR Random Glucose (60-115) mg/dL Lactic Acid (0.5-2.0) mmol/L Calcium (8.4-10.2) mg/dL Magnesium (1.6-2.6) mg/dL Total Bilirubin (0.0-1.0) mg/dL Direct Bilirubin (0.0-0.5) mg/dL AST (5-37) U/L ALT (0-40) U/L Alkaline Phosphatase (39-117) U/L Troponin I High Sens (<3.5-35.0) ng/L Total Protein (6.5-8.0) g/dL Albumin (3.5-5.0) g/dL Urine Color Dark Yellow Urine Appearance Clear Urine pH 5.5 (5.0-9.0) Ur Specific [place] >= 1.030 H (1.005-1.025) Urine Protein Trace (Neg-Trace) mg/dL Urine Glucose (UA) Negative (Negative) mg/dL Urine Ketones 40 (Negative) mg/dL Urine Blood Negative (Negative) Urine Nitrite Negative (Negative) Ur Leukocyte Esterase Negative (Negative) COVID-19 ([place]) (Negative) COVID-19 Clin Com Influenza Type A ([place]) (Negative) Influenza Type B ([place]) (Negative) Influenza A & B Note <IRISH Bueno - Last Filed: 06/12/22 18:32> Lab Results 06/12/22 06/12/22 06/12/22 Range/Units 14:29 14:29 14:29 WBC 16.7 H (4.8-10.8) X10*3/uL RBC 3.98 L (4.60-5.80) X10*6/uL Hgb 12.0 L (14.0-18.0) g/dl Hct 35.8 L (42.0-52.0) % MCV 89.9 (80.0-98.0) fL MCH 30.2 (27.0-33.0) pg MCHC 33.5 (31.0-36.0) g/dl RDW 14.0 (11.0-16.0) % Plt Count 375 (160-400) X10*3/uL MPV 8.9 L (9.4-12.4) fL Immature Gran % (Auto) 0.4 (0.0-0.4) % Neut % (Auto) 82.5 H (45-73) % Lymph % (Auto) 8.8 L (20-40) % Treasure % (Auto) 6.5 (2-11) % Eos % (Auto) 1.6 (0-4) % Baso % (Auto) 0.2 (0-2) % Lymph # (Auto) 1.5 (1.2-4.9) X10*3/uL [place] # (Auto) 1.1 (0.1-1.2) X10*3/uL Eos # (Auto) 0.3 (0.0-0.4) X10*3/uL Baso # (Auto) 0.0 (0.0-0.2) X10*3/uL Abs Immat Gran (auto) 0.06 H (0.00-0.03) X10*3/uL Absolute Neuts (auto) 13.7 H (2.0-8.3) x10*3/uL Absolute Nucleated RBC 0.000 (0.0-0.012) X10*3/uL Nucleated RBC % (auto) 0.0 (0.0-0.2) /100WBC Sodium (135-145) mmol/L Potassium (3.3-5.1) mmol/L Chloride (96-108) mmol/L Carbon Dioxide (22-29) mmol/L Anion Gap (12-20) BUN (9-16) mg/dL Creatinine (0.5-1.4) mg/dL Estim Creat Clear Calc Estimated GFR Random Glucose (60-115) mg/dL Lactic Acid (0.5-2.0) mmol/L Calcium (8.4-10.2) mg/dL Magnesium (1.6-2.6) mg/dL Total Bilirubin (0.0-1.0) mg/dL Direct Bilirubin (0.0-0.5) mg/dL AST (5-37) U/L ALT (0-40) U/L Alkaline Phosphatase (39-117) U/L Troponin I High Sens (<3.5-35.0) ng/L Total Protein (6.5-8.0) g/dL Albumin (3.5-5.0) g/dL Urine Color Urine Appearance Urine pH (5.0-9.0) Ur Specific [place] (1.005-1.025) Urine Protein (Neg-Trace) mg/dL Urine Glucose (UA) (Negative) mg/dL Urine Ketones (Negative) mg/dL Urine Blood (Negative) Urine Nitrite (Negative) Ur Leukocyte Esterase (Negative) COVID-19 ([place]) Negative (Negative) COVID-19 Clin Com See Note Influenza Type A ([place]) Negative (Negative) Influenza Type B ([place]) Negative (Negative) Influenza A & B Note See Note 06/12/22 06/12/22 06/12/22 Range/Units 14:29 14:29 19:24 WBC (4.8-10.8) X10*3/uL RBC (4.60-5.80) X10*6/uL Hgb (14.0-18.0) g/dl Hct (42.0-52.0) % MCV (80.0-98.0) fL MCH (27.0-33.0) pg MCHC (31.0-36.0) g/dl RDW (11.0-16.0) % Plt Count (160-400) X10*3/uL MPV (9.4-12.4) fL Immature Gran % (Auto) (0.0-0.4) % Neut % (Auto) (45-73) % Lymph % (Auto) (20-40) % [place] % (Auto) (2-11) % Eos % (Auto) (0-4) % Baso % (Auto) (0-2) % Lymph # (Auto) (1.2-4.9) X10*3/uL [place] # (Auto) (0.1-1.2) X10*3/uL Eos # (Auto) (0.0-0.4) X10*3/uL Baso # (Auto) (0.0-0.2) X10*3/uL Abs Immat Gran (auto) (0.00-0.03) X10*3/uL Absolute Neuts (auto) (2.0-8.3) x10*3/uL Absolute Nucleated RBC (0.0-0.012) X10*3/uL Nucleated RBC % (auto) (0.0-0.2) /100WBC Sodium 139 (135-145) mmol/L Potassium 3.8 (3.3-5.1) mmol/L Chloride 105 (96-108) mmol/L Carbon Dioxide 26 (22-29) mmol/L Anion Gap 12 (12-20) BUN 17 H (9-16) mg/dL Creatinine 0.84 (0.5-1.4) mg/dL Estim Creat Clear Calc 100.6 Estimated GFR > 60 Random Glucose 146 H (60-115) mg/dL Lactic Acid 0.5 (0.5-2.0) mmol/L Calcium 9.0 (8.4-10.2) mg/dL Magnesium 1.9 (1.6-2.6) mg/dL Total Bilirubin 0.8 (0.0-1.0) mg/dL Direct Bilirubin 0.2 (0.0-0.5) mg/dL AST 17 (5-37) U/L ALT 15 (0-40) U/L Alkaline Phosphatase 72 (39-117) U/L Troponin I High Sens < 3.5 (<3.5-35.0) ng/L Total Protein 6.9 (6.5-8.0) g/dL Albumin 4.2 (3.5-5.0) g/dL Urine Color Urine Appearance Urine pH (5.0-9.0) Ur Specific [place] (1.005-1.025) Urine Protein (Neg-Trace) mg/dL Urine Glucose (UA) (Negative) mg/dL Urine Ketones (Negative) mg/dL Urine Blood (Negative) Urine Nitrite (Negative) Ur Leukocyte Esterase (Negative) COVID-19 ([place]) (Negative) COVID-19 Clin Com Influenza Type A ([place]) (Negative) Influenza Type B ([place]) (Negative) Influenza A & B Note 06/12/22 Range/Units 22:10 WBC (4.8-10.8) X10*3/uL RBC (4.60-5.80) X10*6/uL Hgb (14.0-18.0) g/dl Hct (42.0-52.0) % MCV (80.0-98.0) fL MCH (27.0-33.0) pg MCHC (31.0-36.0) g/dl RDW (11.0-16.0) % Plt Count (160-400) X10*3/uL MPV (9.4-12.4) fL Immature Gran % (Auto) (0.0-0.4) % Neut % (Auto) (45-73) % Lymph % (Auto) (20-40) % [place] % (Auto) (2-11) % Eos % (Auto) (0-4) % Baso % (Auto) (0-2) % Lymph # (Auto) (1.2-4.9) X10*3/uL [place] # (Auto) (0.1-1.2) X10*3/uL Eos # (Auto) (0.0-0.4) X10*3/uL Baso # (Auto) (0.0-0.2) X10*3/uL Abs Immat Gran (auto) (0.00-0.03) X10*3/uL Absolute Neuts (auto) (2.0-8.3) x10*3/uL Absolute Nucleated RBC (0.0-0.012) X10*3/uL Nucleated RBC % (auto) (0.0-0.2) /100WBC Sodium (135-145) mmol/L Potassium (3.3-5.1) mmol/L Chloride (96-108) mmol/L Carbon Dioxide (22-29) mmol/L Anion Gap (12-20) BUN (9-16) mg/dL Creatinine (0.5-1.4) mg/dL Estim Creat Clear Calc Estimated GFR Random Glucose (60-115) mg/dL Lactic Acid (0.5-2.0) mmol/L Calcium (8.4-10.2) mg/dL Magnesium (1.6-2.6) mg/dL Total Bilirubin (0.0-1.0) mg/dL Direct Bilirubin (0.0-0.5) mg/dL AST (5-37) U/L ALT (0-40) U/L Alkaline Phosphatase (39-117) U/L Troponin I High Sens (<3.5-35.0) ng/L Total Protein (6.5-8.0) g/dL Albumin (3.5-5.0) g/dL Urine Color Dark Yellow Urine Appearance Clear Urine pH 5.5 (5.0-9.0) Ur Specific [place] >= 1.030 H (1.005-1.025) Urine Protein Trace (Neg-Trace) mg/dL Urine Glucose (UA) Negative (Negative) mg/dL Urine Ketones 40 (Negative) mg/dL Urine Blood Negative (Negative) Urine Nitrite Negative (Negative) Ur Leukocyte Esterase Negative (Negative) COVID-19 ([place]) (Negative) COVID-19 Clin Com Influenza Type A ([place]) (Negative) Influenza Type B ([place]) (Negative) Influenza A & B Note <Soheila Yeung MD - Last Filed: 06/13/22 00:38> Discharge Plan Discharge Clinical Impression: Inguinal fluid collection, Migraine headache without aura <IRISH Bueno - Last Filed: 06/12/22 18:32> Patient Disposition: Home, Self-Care <IRISH Bueno - Last Filed: 06/12/22 18:32> Instructions: Acute Headache (ED), Groin Pain (ED) <IRISH Bueno - Last Filed: 06/12/22 18:32> Additional Instructions: Please follow-up with your primary care physician and with Urology tomorrow. If you have any worsening or new symptoms, please return to the emergency room or call 911 <IRISH Bueno - Last Filed: 06/12/22 18:32> Prescriptions: New levofloxacin 500 mg tablet 500 mg PO DAILY Qty: 9 0RF sumatriptan succinate 50 mg tablet 50 mg PO Q2-4H PRN (Reason: migraine headache) Qty: 10 0RF Rx Instructions: do not exceed 4 doses per 24 hrs naproxen [Naprosyn] 500 mg tablet 500 mg PO BID PRN (Reason: pain) Qty: 10 0RF No Action cyproheptadine 4 mg tablet 4 - 8 mg PO BEDTIME 30 Days Qty: 60 3RF cholecalciferol (vitamin D3) 50 mcg (2,000 unit) capsule 50 mcg PO DAILY Qty: 30 0RF Aimovig Autoinjector 140 mg/mL auto-injector 140 mg subcut ONCE 30 Days Qty: 30 6RF Probiotic 1 tab PO DAILY One-A-Day Men's Complete 240 mcg-30 mcg- 300 mcg tablet 1 tab PO DAILY magnesium oxide 400 mg (241.3 mg magnesium) tablet 400 mg PO BID Qty: 180 0RF ferrous fumarate 89 mg (29 mg iron) tablet 89 mg PO DAILY fluticasone propionate [Flonase Allergy Relief] 50 mcg/actuation spray,suspension 1 spray intranasal Q12H PRN Rx Instructions: administer into each nostril aspirin 81 mg tablet,chewable 81 mg PO DAILY 30 Days Qty: 30 6RF Rx Instructions: at bedtime propranolol 60 mg capsule,extended release 24 hr 60 mg PO BEDTIME 30 Days Qty: 30 3RF <IRISH Bueno - Last Filed: 06/12/22 18:32> Referrals: Otoniel Schultz MD [Physician] - 06/16/22 <IRISH Bueno - Last Filed: 06/12/22 18:32>
--- NOTE | 2022-06-12 14:16 | ECG_ITS ---
Test Reason : near syncope Blood Pressure : / mmHG Vent. Rate : 086 BPM Atrial Rate : 086 BPM P-R Int : 122 ms QRS Dur : 080 ms QT Int : 344 ms P-R-T Axes : 068 045 039 degrees QTc Int : 411 ms Normal sinus rhythm Normal ECG When compared with ECG of 27-MAR-2022 10:09, No significant change was found Referred By: Joanie Hyde Electronically Signed By:Librado Junior
[2022-06-12 14:34] LABS: MANUAL DIFF FLAG NO
[2022-06-12 14:36] LABS: Basophils Percent Auto 0.2 % (0-2); Eosinophils Absolute Auto 0.3 X10*3/uL (0.0-0.4); Eosinophils Percent Auto 1.6 % (0-4); Hematocrit 35.8 % (42.0-52.0); Imm Gran Abs Auto 0.06 X10*3/uL (0.00-0.03); Imm Gran Pct Auto 0.4 % (0.0-0.4); Lymphocytes Absolute Auto 1.5 X10*3/uL (1.2-4.9); Lymphocytes Percent Auto 8.8 % (20-40); Mean Corpuscular HGB Conc 33.5 g/dl (31.0-36.0); Mean Corpuscular Hemoglobin 30.2 pg (27.0-33.0); Mean Corpuscular Volume 89.9 fL (80.0-98.0); Mean Platelet Volume 8.9 fL (9.4-12.4); Monocytes Absolute Auto 1.1 X10*3/uL (0.1-1.2); Monocytes Percent Auto 6.5 % (2-11); Neutrophils Absolute Auto 13.7 x10*3/uL (2.0-8.3); Neutrophils Percent Auto 82.5 % (45-73); Platelet Count 375 X10*3/uL (160-400); Red Blood Count 3.98 X10*6/uL (4.60-5.80); White Blood Count 16.7 X10*3/uL (4.8-10.8)
[2022-06-12 14:54] LABS: Alanine Aminotransferase 15 U/L (0-40); Albumin Level 4.2 g/dL (3.5-5.0); Alkaline Phosphatase 72 U/L (39-117); Anion Gap 12 (12-20); Aspartate Amino Transferase 17 U/L (5-37); Bilirubin Direct 0.2 mg/dL (0.0-0.5); Bilirubin Total 0.8 mg/dL (0.0-1.0); Blood Urea Nitrogen 17 mg/dL (9-16); COVID-19 Test Negative (Negative); Carbon Dioxide 26 mmol/L (22-29); Chloride 105 mmol/L (96-108); Creatinine Clr Calc Pharmacy 100.6; Estimated Glomerular Filt Rate > 60; Glucose Random 146 mg/dL (60-115); IDNOW Serial# 9DB6401D; IDNOW Serial# BCCEAD1C; Influenza A Negative (Negative); Influenza B2 Negative (Negative); Magnesium 1.9 mg/dL (1.6-2.6); Potassium 3.8 mmol/L (3.3-5.1); Sodium 139 mmol/L (135-145); Total Protein 6.9 g/dL (6.5-8.0)
[2022-06-12 14:58] LABS: Troponin-I High Sensitivity < 3.5 ng/L (<3.5-35.0)
[2022-06-12 17:43] VITALS: BP 118/67; PULSE 94; RESP 20; TEMP 38.6; O2SAT 96
[2022-06-12 19:41] LABS: Lactic Acid 0.5 mmol/L (0.5-2.0)
[2022-06-12] MEDS: 0.9 % Sodium Chloride 1,000 ML 999 ML IV (19:59)
[2022-06-12 22:04] VITALS: BP 122/60; PULSE 111; RESP 18; TEMP 37.2; O2SAT 95
[2022-06-12] MEDS: Morphine Sulfate 4 MG/ML CARTRIDGE IVPUSH (22:21)
[2022-06-12 22:22] LABS: Appearance Urine Clear; Color Urine Dark Yellow; Glucose Urine UA Negative (Negative); Leukocyte Esterase Urine Negative (Negative); Nitrite Urine Negative (Negative); PH 5.5 (5.0-9.0); Specific Gravity - Urine >= 1.030 (1.005-1.025); Urine Blood Negative (Negative); Urine Ketones 40 mg/dL (Negative); Urine Protein Trace mg/dL (Neg-Trace)
--- NOTE | 2022-06-12 22:27 | PC.NURSE ---
Addendum entered by Florina Khalil 06/12/22 22:28: continued. orders placed for pain medication. pt medicated according to mar. pt at bedside at this time Original Note: pt reports 10/10 pain in testicle to this rn. this rn made dr barrientos aware. medic
[2022-06-13 00:02] VITALS: BP 111/57; PULSE 97; RESP 16; TEMP 37.4; O2SAT 95
[2022-06-13] MEDS: diphenhydrAMINE HCL 50 MG/ML VIAL 25 MG IVPUSH (00:43)
[2022-06-13 00:44] VITALS: RESP 18
[2022-06-13] MEDS: HYDROmorphone HCl 1 MG/ML SYRINGE IVPUSH (00:44)
[2022-06-13] MEDS: Metoclopramide HCl 10 MG/2 ML VIAL IVPUSH (00:44)
[2022-06-13] MEDS: levoFLOXacin/D5W 500 MG/100 ML PIGGYBACK 100 MG IV (00:44)
--- NOTE | 2022-06-13 00:59 | PC.NURSE ---
Patient is alert and oriented. Medicated per mar. Spouse at bedside, call solorio within patient reach. Will continue to monitor
[2022-06-13 11:04] LABS: CT PCR NOT DETECTED (Not Detect.); NG PCR NOT DETECTED (Not Detect.)
== END 2022-06-13 01:57 | disposition home or self-care (01) ==
PROVIDERS: Physician Assistant; Emergency Provider Emergency Medicine; PCP Family Medicine
DX: R19.09 Other intra-abdominal and pelvic swelling, mass and lump (principal); G43.909 Migraine, unspecified, not intractable, without status migrainosus; Z20.822 Contact with and (suspected) exposure to COVID-19; R50.9 Fever, unspecified; Z79.82 Long term (current) use of aspirin; Z79.899 Other long term (current) drug therapy
CPT/HCPCS: 0353U; 36415; 72192; 76870; 80048; 80076; 81003; 83605; 83735; 84484; 85025; 87040; 87502; 87635; 93005; 93975; 96361; 96365; 96375; 99285; J1170; J1200; J1956; J2270; J2765

== ENCOUNTER → 2022-06-16 11:26 | Outpatient (BNVA) | payer OTHER, SELFPAY | PROVIDERS: PCP Family Medicine; Visit Provider Urology | DX: Z13.9 Encounter for screening, unspecified (principal); L02.214 Cutaneous abscess of groin | CPT/HCPCS: 51798; 99202 ==

== ENCOUNTER 2022-06-17 12:59 | Day surgery (SDC) | payer OTHER, SELFPAY ==
[2022-06-17] VITALS (9 sets, daily range): BP systolic 107–124; BP diastolic 69–76; PULSE 63–89; RESP 15–18; TEMP 36.6–37.1; O2SAT 98–100; BMI 24.3
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
[2022-06-17] MEDS: Lactated Ringers 1,000 ML 100 ML IVCONT (13:44)
--- NOTE | 2022-06-17 14:27 | MHC.SHP ---
Pre-Procedural Eval Section A Date of Service: 06/17/22 The patient is an INPATIENT: No The History & Physical has been completed within 30 days and I have reviewed it.: Yes Section B Chief Complaint: Cutaneous abscess of groin Allergies: Allergies Allergy/AdvReac Type Severity Reaction Status Date / Time No Known Allergies Allergy Verified 06/16/22 12:01 Plan Diagnosis/Plan: Unchanged I have reviewed the history and physical and performed a pertinent physical examination on my patient. No changes have occurred unless specified. Incision and Drainage right groin abscess Time Spent With Patient Time: Total time managing care of this patient today ____ minutes.
--- NOTE | 2022-06-17 15:04 | W.PM.OPN ---
Operative Note Operative Note Date of Service: 06/17/22 Narrative: PREOP DIAGNOSIS: Right groin Abscess POSTOP DIAGNOSIS: Right groin Abscess PROCEDURE: Incision and Drainage right groin Abscess Indications: Nimesh Velez is a 51-year-old male with induration on the right groin in the base of the scrotum with some drainage.? His CAT scan showed some inflammatory changes in the subcutaneous layer. Details of procedure: The patient was brought into the operating room placed on the OR table in supine position. Antibiotics confirmed. General anesthesia was administered. The patient was repositioned into lithotomy position, prepped and draped in the usual sterile fashion. Time-out was done per protocol. A rectal exam was done, prostate smooth, non boggy, no perineal thickening or induration. Gloves were changed. General surgery was asked to evaluate as an intraop consultation. On inspection there was thickening along the right inguinal area, minimal fluctuance in the inferior portion of the right groin near the base of right scrotum, the testes were normal, no extending cellulitis. An incision was made in the inferior portion of the right groin, some pus drained and Culture obtained, Saline irrigation. Minimal half an inch Iodoform packing and Dressing applied. The patient was brought out of anesthesia and taken to recovery in stable condition. Complications: None Drains: None
[2022-06-17] MEDS: fentaNYL citrate/PF 100 MCG/2 ML VIAL 25 MCG IVPUSH (15:38)
[2022-06-17] MEDS: Ketorolac Tromethamine 30 MG/ML VIAL 15 MG IVPUSH (15:38)
[2022-06-17] MEDS: Acetaminophen 325 MG TABLET 650 MG PO (15:39)
[2022-06-17] MEDS: oxyCODONE HCl Immed Release 5 MG TABLET PO (15:39)
--- NOTE | 2022-06-18 12:20 | P.CONGS_ITS ---
History of Present Illness Consult details Consult date: 06/17/22 Narrative: I was requested by Dr. Schultz to do an intraoperative consult for this patient. He apparently has had this induration on the right groin in the base of the scrotum with some drainage. His CAT scan showed some inflammatory changes in the subcutaneous layer. The patient was therefore scheduled for an I and D in the OR by Dr. Davis Méndez. I was able to see the patient at the beginning of the case while under anesthesia. Review of Systems Review of Systems: Patient under anesthesia Yes unobtainable due to endotracheal tube PMFSH Past Medical History Medical History Anemia Back pain Colitis Depression DJD (degenerative joint disease) Fatigue Knee pain Vitamin D deficiency Weight loss Family History Family History Mother Heart disease Father Asthma Diabetes Heart disease Brother Asthma Diabetes Sister Asthma Diabetes Surgical History Surgical History H/O knee surgery History of appendectomy History of esophagogastroduodenoscopy (EGD) History of surgical amputation of finger of right hand Hx of colonoscopy Previous back surgery Previous back surgery Social History Social History Housing: House Are you a primary care transport nurse to a significant other at home: No Do you presently have visiting nurse or other home services: No Alcohol intake: current Alcohol intake frequency: does not drink Alcohol type: beer Patient Tobacco Use Status: Former Tobacco user Quit Date: 10 yrs ago Tobacco use type: Cigar e-Cigarette/Vaping Use: Never Used Second Hand Smoke Exposure: Yes Current occupational status: unemployed Cognitive needs: No Hearing needs: No Vision needs: Yes Meds Allergies Allergy/AdvReac Type Severity Reaction Status Date / Time No Known Allergies Allergy Verified 06/16/22 12:01 Home Medications Medication Instructions Recorded Confirmed Last Taken Type multivit,calc,mins-folic 240 1 tab PO DAILY 06/20/20 06/17/22 Unknown History mcg-vit K1 30 mcg-lycopene 300 mcg tablet (One-A-Day Men's Complete) Probiotic 1 tab PO DAILY 10/12/20 06/17/22 Unknown History ferrous fumarate 89 mg (29 mg 89 mg PO DAILY 11/06/20 06/17/22 06/15/22 History iron) tablet fluticasone propionate 50 1 spray intranasal Q12H PRN 04/15/22 06/17/22 Unknown History mcg/actuation nasal Allergy Symptoms spray,suspension (Flonase Allergy Relief) ibuprofen 200 mg tablet 400 mg PO Q6H PRN Inflammation 06/17/22 06/17/22 06/16/22 History levofloxacin 500 mg tablet 1 tab PO DAILY 06/17/22 06/17/22 Unknown History Physical Exam Vital Signs: Vital Signs: Last Vital Signs Temp 98.0 F 06/17/22 16:02 Pulse 65 06/17/22 16:02 Resp 18 06/17/22 16:02 BP 120/76 06/17/22 16:02 Pulse Ox 98 06/17/22 16:02 O2 Del Method 06/17/22 16:02 O2 Flow Rate 4 06/17/22 15:18 BMI result Body Mass Index 24.3 Const: Other: intubated, under anesthesia, in lithotomy position : Other: right groin area near the very base of the right scrotum is note of an induration, probably about 2.5 cm in widest dimension, with what appears to be small sinuses, with scanty drainage, no spreading cellulitis Results Labs Labs: All other labs normal. Assessment and Plan (1) Groin abscess: Status: Acute This may be secondary to an epidermal cyst versus hidradenitis suppurativa. I agree with the plan Dr. Schultz do an I and D and debridement of the area. I can see him in the office down the line if this becomes recurrent or with poor healing. The plan had been with Dr. Schultz. Time Spent With Patient Time: Total time managing care of this patient today ____ minutes. Procedures Date of Service Date of Service: 06/17/22
== END 2022-06-17 16:04 | disposition home or self-care (01) ==
PROVIDERS: PCP Family Medicine; Visit Provider Urology
PROC: (CPT 10061; principal; 2022-06-17 14:30)
DX: L02.214 Cutaneous abscess of groin (principal); D64.9 Anemia, unspecified; E55.9 Vitamin D deficiency, unspecified; Z79.82 Long term (current) use of aspirin; Z79.1 Long term (current) use of non-steroidal anti-inflammatories (NSAID); Z87.891 Personal history of nicotine dependence
CPT/HCPCS: 10061; 87070; 87205; J0690; J1885; J2250; J2405; J3010

== ENCOUNTER → 2022-06-19 15:24 | Outpatient (BNVA) | payer OTHER, SELFPAY | PROVIDERS: PCP Family Medicine; Visit Provider Urology ==

== ENCOUNTER 2022-06-23 12:00 | Outpatient (REF) | payer OTHER, SELFPAY ==
[2022-06-23 13:58] LABS: MANUAL DIFF FLAG NO
[2022-06-23 14:09] LABS: Basophils Absolute Auto 0.1 X10*3/uL (0.0-0.2); Basophils Percent Auto 0.9 % (0-2); Eosinophils Absolute Auto 1.2 X10*3/uL (0.0-0.4); Eosinophils Percent Auto 13.6 % (0-4); Hematocrit 36.7 % (42.0-52.0); Hemoglobin 12.2 g/dl (14.0-18.0); Imm Gran Abs Auto 0.06 X10*3/uL (0.00-0.03); Imm Gran Pct Auto 0.7 % (0.0-0.4); Lymphocytes Percent Auto 22.1 % (20-40); Mean Corpuscular HGB Conc 33.2 g/dl (31.0-36.0); Mean Corpuscular Hemoglobin 31.3 pg (27.0-33.0); Mean Corpuscular Volume 94.1 fL (80.0-98.0); Mean Platelet Volume 10.1 fL (9.4-12.4); Monocytes Absolute Auto 0.6 X10*3/uL (0.1-1.2); Monocytes Percent Auto 7.2 % (2-11); Neutrophils Percent Auto 55.5 % (45-73); Platelet Count 351 X10*3/uL (160-400); Red Cell Distribution Width 14.6 % (11.0-16.0)
[2022-06-23 14:46] LABS: Erythrocyte Sedimentation Rate 49 MM/HR (0-15)
[2022-06-23 15:06] LABS: Alanine Aminotransferase 12 U/L (0-40); Albumin Level 4.1 g/dL (3.5-5.0); Alkaline Phosphatase 78 U/L (39-117); Anion Gap 15 (12-20); Aspartate Amino Transferase 15 U/L (5-37); Bilirubin Total 0.3 mg/dL (0.0-1.0); Blood Urea Nitrogen 16 mg/dL (9-16); Calcium 9.5 mg/dL (8.4-10.2); Carbon Dioxide 27 mmol/L (22-29); Chloride 106 mmol/L (96-108); Estimated Glomerular Filt Rate > 60; Glucose Random 76 mg/dL (60-115); Potassium 4.8 mmol/L (3.3-5.1); Sodium 143 mmol/L (135-145)
[2022-06-23 15:18] LABS: HIV AB/AG Nonreactive (Nonreactive); HIV Num 1 0.07 S/CO (0.00-0.99)
[2022-06-24 09:34] LABS: Lyme Abs Screen <0.90 index
[2022-06-24 15:04] LABS: CRP High Sensitivity 3.1 mg/L
[2022-06-26 12:43] LABS: TS Negative Control Passed; TS Panel A 0; TS Panel B 0; TS Positive Control Passed; TSpotTB Negative (Negative)
== END 2022-06-23 12:01 | disposition home or self-care (01) ==
LOC: HO.WFDLDS 12:00
PROVIDERS: Visit Provider Family Medicine
DX: Z00.00 Encounter for general adult medical examination without abnormal findings (principal); R06.83 Snoring; G47.9 Sleep disorder, unspecified; G43.009 Migraine without aura, not intractable, without status migrainosus; R61 Generalized hyperhidrosis; R35.1 Nocturia; Z86.73 Personal history of transient ischemic attack (TIA), and cerebral infarction without residual deficits; Z79.899 Other long term (current) drug therapy; Z11.3 Encounter for screening for infections with a predominantly sexual mode of transmission; Z11.1 Encounter for screening for respiratory tuberculosis
CPT/HCPCS: 36415; 80053; 85025; 85652; 86141; 86481; 86617; 86618; 87389; 99212

== ENCOUNTER → 2022-06-25 09:59 | Outpatient (REF) | payer OTHER, SELFPAY | LOC: HO.SL 09:59 | PROVIDERS: PCP Family Medicine; Visit Provider Nurse Practitioner Family | DX: G47.19 Other hypersomnia (principal); G47.9 Sleep disorder, unspecified; R35.1 Nocturia; R61 Generalized hyperhidrosis; R06.83 Snoring | CPT/HCPCS: 95806 ==

== ENCOUNTER → 2022-07-04 13:10 | Outpatient (BNVA) | payer OTHER, SELFPAY | PROVIDERS: PCP Family Medicine; Visit Provider Urology | DX: N40.1 Benign prostatic hyperplasia with lower urinary tract symptoms (principal); R35.1 Nocturia; L02.214 Cutaneous abscess of groin | CPT/HCPCS: 51798; 99212 ==

== ENCOUNTER → 2022-07-07 08:24 | Outpatient (BNVA) | payer OTHER, SELFPAY | PROVIDERS: PCP Family Medicine; Referring Provider Family Medicine; Visit Provider Internal Medicine | DX: R07.2 Precordial pain (principal); Z86.73 Personal history of transient ischemic attack (TIA), and cerebral infarction without residual deficits | CPT/HCPCS: 99212 ==

== ENCOUNTER → 2022-07-24 10:23 | Outpatient (REF) | payer OTHER, SELFPAY ==
--- NOTE | 2022-07-24 10:26 | HM_ITS ---
Conclusion: 1. Patient was monitored for total period of 6 days and 23 hours 2. Baseline was normal sinus rhythm with average heart of 80 beats per minute 3. No significant pauses or bradycardia noted 4. Rare PACs noted with 2 SVT episodes longest 4 beats and fastest at 135 beats per minute 5. Patient reported 1 event without any obvious symptoms reported, correlated with sinus tachycardia MTDD
== END ==
LOC: HO.CARD 10:23
PROVIDERS: PCP Family Medicine; Visit Provider Internal Medicine
DX: I63.81 Other cerebral infarction due to occlusion or stenosis of small artery (principal); I48.0 Paroxysmal atrial fibrillation
CPT/HCPCS: 93242

== ENCOUNTER → 2022-08-27 08:17 | Outpatient (BNVA) | payer OTHER, SELFPAY | PROVIDERS: PCP Family Medicine; Visit Provider Internal Medicine | DX: I25.10 Atherosclerotic heart disease of native coronary artery without angina pectoris (principal); R07.2 Precordial pain; Z86.73 Personal history of transient ischemic attack (TIA), and cerebral infarction without residual deficits | CPT/HCPCS: 93005; 99212 ==

== ENCOUNTER 2023-09-14 13:51 | Outpatient (AMB) | payer OTHER, SELFPAY ==
[2023-09-14 14:10] VITALS: BP 118/68; PULSE 78; BMI 25.8
--- NOTE | 2023-09-14 14:10 | A.OFFVIS_ITS ---
Vital Signs 09/14/23 14:10 Height 5 ft 8 in Weight 169 lb 12.095 oz BMI 25.8 BP 118/68 Blood Pressure Location Lt brachial Position Sitting Pulse 78 Pulse Source Monitor Intake Visit Reasons: 1 year fu Allergies No Known Allergies Allergy (Verified 08/27/22 08:26) Medication List - Last Reconciled 09/14/23 by Sukumar Lynne MD aspirin 81 mg PO DAILY 30 days cholecalciferol (vitamin D3) 50 mcg PO DAILY cyproheptadine 4 mg PO BID erenumab-aooe (Aimovig Autoinjector) 140 mg subcut ONCE 30 days ferrous sulfate 325 mg PO DAILY fluticasone propionate 50 mcg/actuation (Flonase Allergy Relief) 1 spray intranasal Q12H PRN ibuprofen 400 mg PO Q6H PRN magnesium oxide 400 mg PO BID multivit,calc,zlr-AU-W8-lycop 240 mcg-30 mcg- 300 mcg (One-A-Day Men's Complete) 1 tab PO DAILY phytosterol-pantethine 300-100 mg (CholestOff Complete) 1 cap PO DAILY [Probiotic 1 tab PO DAILY] propranolol ER 60 mg PO BEDTIME 30 days rosuvastatin 20 mg PO DAILY 90 days HPI Comments Details: Nimesh returns for follow-up. Originally seen in consultation regarding chest pain. He has had this pain for quite some time. Initially, thought to be r adicular. However, seems very random rather. As of this moment while sitting in the clinic, he is complaining of chest pain. Hence no specific patterns. He underwent a coronary CTA but that showed only mild disease. Otherwise, doing good. No limitations in activity or lifestyle. FORMERLY [facility], 1928–1983 Medical History Depression Vitamin D deficiency Weight loss Knee pain Fatigue DJD (degenerative joint disease) Anemia Colitis Back pain Surgical History Previous back surgery History of esophagogastroduodenoscopy (EGD) Hx of colonoscopy History of appendectomy History of surgical amputation of finger of right hand H/O knee surgery Previous back surgery Family History Mother Heart disease Father Asthma Diabetes Heart disease Brother Asthma Diabetes Sister Asthma Diabetes Social History Housing: House Are you a primary career discovery teacher to a significant other at home: No Do you presently have visiting nurse or other home services: No Alcohol intake: current Alcohol intake frequency: does not drink Alcohol type: beer Patient Tobacco Use Status: Former Tobacco user Tobacco use type: Cigar e-Cigarette/Vaping Use: Never Used Second Hand Smoke Exposure: Yes Current occupational status: unemployed Cognitive needs: No Hearing needs: No Vision needs: Yes Review of Systems Const Denies weakness ENT Denies dizziness Card Denies chest pain, Denies chest pain with activity, Denies syncope, Denies rapid heart rate, Denies pedal edema, Denies edema, Denies leg edema, Denies lightheadedness, Denies palpitations, Denies dyspnea, Denies dyspnea on exertion and Denies orthopnea Resp Denies cough, Denies dyspnea and Denies dyspnea on exertion GI Denies hematochezia and Denies change in stool character Musc Denies abnormal gait, Denies muscle cramps, Denies muscle weakness, Denies numbness, Denies radiating pain into limb and Denies tingling Neuro Denies abnormal gait, Denies dizziness, Denies syncope, Denies numbness, Denies tingling and Denies weakness Endo Denies palpitations Physical Exam Vital Signs: Last Vital Signs Pulse 78 09/14/23 14:10 BP 118/68 09/14/23 14:10 BMI result Body Mass Index 25.8 Const General: comfortable and no acute distress Orientation/consciousness: patient oriented x3 HEENT Other: Unremarkable Head: Yes normal to inspection Neck Neck: Yes normal visual inspection Chest Chest palpation & inspection: normal inspection of the chest Resp Auscultation: clear to auscultation bilaterally Cardio Palpation: normal PMI Heart sounds: S1 normal heart sound present, S2 normal heart sound present, no gallops, no murmurs and no rubs GI Palpation (GI): Soft to palpation Back/Spine/Pelvis Other: unremarkable Skin General skin exam: no rashes or lesions noted Neuro General: patient oriented x3 Extrem General: Yes normal to inspection Psych Mental Status: mental status grossly normal Office Procedures EKG Details: EKG with sinus rhythm at 78/Min; no significant ST-T changes and otherwise unremarkable[place] [id number], Complete Assessment & Plan Assessment & Plan (1) Atherosclerotic cardiovascular disease: Code(s): I25.10 - Atherosclerotic heart disease of [place] coronary artery without angina pectoris Category: Medical Plan: Coronary CTA reviewed. No obstructive disease. Eccentric calcific plaque in the distal left main with mild stenosis. Minimal stenosis in the LAD and mild stenosis in the proximal circumflex. Overall, nothing significant. On statins. Check lipids. (2) Precordial chest pain: Code(s): R07.2 - Precordial pain Category: Medical Plan: Noncardiac etiology. Reassured. (3) Lacunar infarction: Code(s): I63.81 - Other cerebral infarction due to occlusion or stenosis of small artery Category: Medical Plan: In the brain MRI, suspected chronic microangiopathy versus migraine associated vasculopathy and possible remote lacunar infarct. Echocardiogram with LVEF of 56%. No valvular issues. Holter without any atrial fibrillation. May remain on statins. Orders: Orders Lipid Panel Today E78.5 - Hyperlipidemia, unspecified, I25.10 - Atherosclerotic heart disease of [place] coronary artery without angina pectoris Liver Panel Today I25.10 - Atherosclerotic heart disease of [place] coronary artery without angina pectoris Coding Level of Care Code Est Pt Level 3 (52645) Diagnoses Atherosclerotic cardiovascular disease I25.10 Precordial chest pain R07.2 Lacunar infarction I63.81 CPT Codes EKG - CPT: [id number], Complete ([id number])
== END 2023-09-14 14:47 | disposition home or self-care (01) ==
PROVIDERS: PCP Family Medicine; Visit Provider Internal Medicine
DX: I25.10 Atherosclerotic heart disease of native coronary artery without angina pectoris (principal); R07.2 Precordial pain; I63.81 Other cerebral infarction due to occlusion or stenosis of small artery
CPT/HCPCS: 93010; 99213

== ENCOUNTER → 2023-09-14 13:51 | Outpatient (BNVA) | payer SELFPAY | PROVIDERS: PCP Family Medicine; Visit Provider Internal Medicine | DX: I25.10 Atherosclerotic heart disease of native coronary artery without angina pectoris (principal); R07.2 Precordial pain; I63.81 Other cerebral infarction due to occlusion or stenosis of small artery | CPT/HCPCS: 93005; 99212 ==

== ENCOUNTER 2023-10-30 13:40 | Outpatient (REF) | payer OTHER, SELFPAY ==
--- NOTE | ~2023-10-30 | XR_ITS ---
EXAMINATION: XR SACROILIAC JOINTS CLINICAL INFORMATION: Bilateral sacroiliitis, history of lumbar fusion COMPARISON: CT lumbar spine May 31, 2019 TECHNIQUE: 3 views of the sacroiliac joints FINDINGS: Redemonstration of postsurgical changes in the partially imaged lower spine with interbody devices at L4-L5 and L5-S1. Fixation hardware with screws and rods incompletely imaged. Surgical clips. Asymmetric degenerative changes with sclerosis of the right sacroiliac joint greater than left. XR/XR sacroiliac joint min 3V IMPRESSION: Asymmetric degenerative changes with sclerosis of the right sacroiliac joint greater than left. Limited imaging of postsurgical changes in the lower lumbar spine which could be evaluated with dedicated imaging if clinically indicated. Electronically signed by: Jeannie Morales MD 11/24/2023 01:56 PM EDT
== END 2023-10-30 13:41 | disposition home or self-care (01) ==
LOC: HO.XRAY 13:40
PROVIDERS: Visit Provider Internal Medicine Rheumatology
DX: M46.1 Sacroiliitis, not elsewhere classified (principal)
CPT/HCPCS: 72202

== ENCOUNTER → 2023-12-08 10:07 | Outpatient (RCR) | payer OTHER, SELFPAY ==
[2020-08-03 09:04] VITALS: BP 102/62; PULSE 62; RESP 12; TEMP 36.3; O2SAT 99; BMI 24.0
--- NOTE | 2020-08-03 09:29 | PM.HEMONCCN ---
Subjective - Subjective Chief complaint: Consult for: Normochromic normocytic anemia. Patient: new to practice Consult date: 08/03/20 Requesting Physician: Dr. Flores. Primary Care Provider: Kyler Flores MD Medical Summary: DAIGNOSIS: NORMOCHROMIC NORMOCYTIC ANEMIA. HPI - Consult Narrative Reason for consult: Consult for: Anemia. Narrative: Nimesh Velez is a pleasant 49 year old gentleman, who has been noted to be anemic. CBC from 08/30/24 revealed: WBC 7.7, HGB 12.8, HCT 38.9, MCV 95, PLT 376. Review of his labs in the computer revealed the following hemoglobin trend: August 22 10:17 13.3 Apr 27, 07:40 13.7 Dec 01, 10:05 13.4 Jun 29, 10:33 14.0 Nov 11, 07:56 14.1 ROS: He has been rather fatigued over the past 4-5 months. He denies fever nor chills. Appetite is decline. He lost 15 lb in 6 months. He had back surgery sober 2018. It has been downhill since then he said. This was his 2nd surgery. His back still hurts. He denies headaches. Sometimes he gets lightheaded. He passed out couple of weeks ago after he had some dental extractions. Denies any chest pain or trouble breathing. No abdominal pain. He does have heartburn and nausea times. He gets diarrhea at times denies any gross blood in the stools. He underwent a colonoscopy [address] Jimenez. This revealed: POSTOPERATIVE DIAGNOSES: 1. Gastroesophageal reflux. 2. Abdominal discomfort. 3. Diarrhea. 4. Abnormal x-rays of his biliary and pancreatic ducts. 5. Normal major papilla. 6. Rule out celiac disease. 7. Duodenitis. 8. Rule out Helicobacter pylori. 9. Hiatal hernia. 10. Reflux esophagitis. 11. Rule out Arreaga's esophagus. 12. Colitis. 13. Diverticulosis. Pathology: GE junction: Reflux disease. Duodenum: Mild focal subacute duodenitis. Stomach: Moderate active chronic gastritis. H pylori I positive. Colon: Moderate active chronic colitis features consistent with chronic inflammatory bowel disease. Negative for dysplasia. Impression: 2. Given the upper endoscopy findings, I shall start him on omeprazole 20 mg daily. 3. In regard to the colonoscopy findings, I shall start him on a mesalamine (Apriso) 1.5 grams per day to see if treating the colitis will help improve his diarrhea. 4. He was advised not to use any aspirin or NSAIDs for at least a week. 5. He was advised to try to limit his caffeine consumption. 6. He has been advised to see me again in 1 month. 7. I do think he still may need an endoscopic ultrasound and possible ERCP to evaluate the abnormal imaging studies of the biliary and pancreatic ducts as well. I shall review that with him when I see him in followup. Apparently the patient did no to go back for a follow-up. Denies dysuria or hematuria. He complains of joint pains. Most of his joints hurt. He has back pain. He feels his whole body is numb/week. He has to push himself to do stuff. He does feel a little depressed. Sometimes he gets pruritus. Family history: His mom had kidney disease. She had amyloidosis. She was treated for it but passed. 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 Than the [employer] close down. He is . He has 3 children. He smokes occasionally. He drinks occasionally. He likes beer. Denies drugs. Review of Systems - Constitutional Reports system reviewed and no additional complaints, except as documented, Reports lack of energy, Reports malaise, Reports weight loss - Eyes Reports system reviewed and no additional complaints, except as documented - ENT Reports system reviewed and no additional complaints, except as documented - Cardiovascular Reports system reviewed and no additional complaints, except as documented - Respiratory Reports no additional respiratory complaints - Gastrointestinal Reports system reviewed and no additional complaints, except as documented - Genitourinary Genitourinary: Reports no additional male genitourinary complaints - Musculoskeletal Reports system reviewed and no additional complaints, except as documented - Integumentary/Breasts Skin/Breast: Reports no additional skin complaints - Neurologic Reports system reviewed and no additional complaints, except as documented - Psychiatric Reports system reviewed and no additional complaints, except as documented - Endocrine Reports no additional endocrine complaints - Hematologic/Lymphatic Reports system reviewed and no additional complaints, except as documented - Allergic/Immunologic Reports system reviewed and no additional complaints, except as documented Oncology Screenings - ECOG Performance Status ECOG Performance Status: 0 [facility] Medical History: Medical History (Last Updated 08/03/20 @ 09:10 by Adelina Vaughan) Back pain Colitis Functional capacity: independent ambulation Patient : No Family History: Family History (Last Updated 08/03/20 @ 09:09 by Adleina Vaughan) Mother No problems noted. Father No problems noted. Brother Asthma Sister Asthma Surgical History: Surgical History (Last Updated 08/03/20 @ 09:08 by Adelina Vaughan) H/O knee surgery History of appendectomy History of surgical amputation of finger of right hand Previous back surgery Social History: Social History (Last Updated 08/03/20 @ 09:09 by Adelina Vaughan) Alcohol History: Alcohol intake: current Alcohol History Details: Alcohol intake frequency: holiday/special occasion Alcohol type: beer Tobacco History: Smoking Status: Current some day smoker Substance Use History: Use of substances other than those prescribed or required for medical reasons: No Nutrition Assessment: Patient : No Smoking status: Current some day smoker Home Medications and Allergies Home Medications Medication Instructions Recorded Confirmed Type magnesium oxide 400 mg (241.3 mg 400 mg PO BID 06/20/20 08/03/20 History magnesium) tablet multivit,calc,mins-folic 240 1 tab PO DAILY tab 06/20/20 08/03/20 History mcg-vit K1 30 mcg-lycopene 300 mcg tablet Allergies Allergy/AdvReac Type Severity Reaction Status Date / Time No Known Allergies Allergy Verified 07/07/20 09:47 Physical Exam Vital signs: Vital Signs Temp 97.4 F 08/03/20 09:04 Pulse 62 08/03/20 09:04 Resp 12 08/03/20 09:04 BP 102/62 08/03/20 09:04 Pulse Ox 99 08/03/20 09:04 Intake & Output 08/02/20 08/03/20 08/03/20 18:59 06:59 18:59 Other: Weight 71.6 kg Weight in Grams 27401 Weight 71.6 kg - Constitutional Present: no acute distress - Routine HEENT Exam Head: Present: normal inspection ENT: Present: mucous membranes moist - Routine Respiratory Exam Present: CTAB - Routine Cardiovascular Exam Cardiovascular: Present: RRR, S1, S2 - Routine Abdominal Exam Present: soft, nontender - Routine Rectal Exam Patient deferred: digital exam - Routine Extremities Exam Present: nontender - Routine Skin Exam Present: intact - Routine Neurological Exam Present: alert, oriented X3 - Detailed Neurological Exam: Coma Scale Eye Opening: Spontaneous (4) Verbal Response: Oriented (5) - Routine Psychiatric Exam Present: normal affect Hem/Onc Consult Result - Labs CBC & Chem 7: 08/03/20 09:58 08/03/20 09:58 Assessment and Plan (1) Normochromic normocytic anemia Status: Acute This is a pleasant 49-year-old gentleman with the history of normochromic normocytic anemia. Hemoglobin is mildly low at 12.5. DIFFERENTIAL DIAGNOSIS: 1. IRON DEFICIENCY ANEMIA: He does have a history of colitis. Could be having occult GI bleeding. 2. B12/FOLATE DEFICIENCY: He has had some numbness and tingling in his hands and feet. He could have B12 deficiency as an explanation. 3. ANEMIA OF CHRONIC DISEASE: He does not have kidney disease however he does have some arthralgias/arthritis. 4. HEMOLYTIC ANEMIA: Is in the differential. 5. UNDERLYING MYELO INFILTRATIVE DISORDER: Lymphoma versus MDS versus multiple myeloma. Mom had amyloidosis. PLAN: Will proceed with further evaluation. Will check iron studies and ferritin: 44/240/18/97. Check B12: 451 and folate levels: 17.3. Check hemolytic screen, LDH 163. Check LDH: 163 and an SIEP. Will review the above results and plan further management. If the blood count continues to drop will proceed with a bone marrow exam for further evaluation. In the meantime he was advised to follow-up with Dr. Jimenez given the history of colitis, and intermittent diarrhea. He will return in 3 months for a follow-up visit. Thank you, CC: Dr. Flores. Dr. Jimenez. (2) Anemia Status: Acute This is a pleasant 49-year-old gentleman, with a history of colitis. He has been noted to be anemic. MCV is 95. DIFFERENTIAL DIAGNOSIS: 1. IRON DEFICIENCY ANEMIA: 2. B12/FOLATE DEFICIENCY: 3. ACD: 4. HEMOLYTIC ANEMIA: 5. UNDERLYING MYELO INFILTRATIVE DISORDER: MDS versus multiple myeloma versus lymphoma. PLAN: Will proceed with further evaluation. I will check iron studies and ferritin. Check B12 and folate levels. Check hemolytic screen. Check LDH and SIEP. Will review the above workup and then proceed accordingly. He will return in a couple of months for a follow-up visit.
[2020-08-03 10:04] LABS: Baso%MD 0.6 %; Eos%MD 4.9 %; Hematocrit 38.1 % (42-52); Hemoglobin 12.5 g/dl (14.0-18.0); IG%MD 0.1 %; Lymph%MD 24.7 %; Mean Corpuscular HGB Conc 32.8 g/dl (31.0-36.0); Mean Corpuscular Hemoglobin 31.9 pg (27.0-33.0); Mean Corpuscular Volume 97.2 fL (80-98); Mean Platelet Volume 9.3 fL (9.4-12.4); Mono%MD 9.1 %; Neut%MD 60.6 %; Platelet Count 297 X10*3/uL (160-400); Red Blood Count 3.92 X10*6/uL (4.60-5.80); Red Cell Distribution Width 15.2 % (11.0-16.0); White Blood Count 7.8 X10*3/uL (4.8-10.8)
--- NOTE | 2020-08-03 10:16 | MHC.HEMONCMA ---
Pt presents for consult on anemia. History reviewed, labs were drawn and pt to return in 3 months. Also, referral made with GI for repeat colonscopy. Pt will be notified through that department.
[2020-08-03 10:39] LABS: Alanine Aminotransferase 13 U/L (0-40); Albumin Level 4.3 g/dL (3.5-5.0); Alkaline Phosphatase 88 U/L (39-117); Anion Gap 9 (12-20); Aspartate Amino Transferase 18 U/L (5-37); Bilirubin Total 0.4 mg/dL (0.0-1.0); Blood Urea Nitrogen 12 mg/dL (9-16); Calcium 9.3 mg/dL (8.4-10.2); Carbon Dioxide 28 mmol/L (22-29); Chloride 107 mmol/L (96-108); Estimated Glomerular Filt Rate > 60; Glucose Random 102 mg/dL (60-115); Iron 44 mcg/dL (45-160); Lactate Dehydrogenase 163 U/L (118-273); Percent Iron Saturation 18 % (15-50); Potassium 4.3 mmol/L (3.3-5.1); Sodium 140 mmol/L (135-145); Total Iron Binding Capacity 240 mcg/dL (228-428); Total Protein 6.8 g/dL (6.5-8.0); Unsaturated Iron Binding 196 ug/dL
[2020-08-03 10:54] LABS: Ferritin 97 ng/mL (20-250)
[2020-08-03 11:29] LABS: Folate 17.3 ng/mL (> or = 4.0); Vitamin B12 451 pg/mL (200-900)
[2020-08-03 14:14] LABS: Basophils Abs Manual 0.1 X10*3/uL (0.0-0.3); Basophils Percent Manual 1 % (0-1); Eosinophils Absolute Manual 0.3 X10*3/UL (0.0-0.8); Eosinophils Percent Manual 4 % (0-4); Lymphocytes Absolute Manual 1.6 X10*3/uL (0.6-4.8); Lymphocytes Percent Manual 21 % (20-40); Monocytes Absolute Manual 0.6 X10*3/uL (0.0-1.2); Monocytes Percent Manual 8 % (2-11); Neutrophils Percent Manual 66 % (45-73); RBC Morphology NOTED
[2020-08-03 14:15] LABS: Band Neutrophils Percent 0 % (3-5); Hypochromasia 1+ (5-14) /OIF; Neutrophils Absolute Manual 5.1 X10*3/uL (2.2-7.9); Platelet Estimate NORMAL (NORMAL); Platelet Morphology Comment NORMAL
[2020-08-06 14:06] LABS: IgA 240 mg/dL (47-310); IgG 845 mg/dL (600-1640); IgM 80 mg/dL (50-300)
[2020-11-05 09:26] VITALS: BP 108/63; PULSE 65; RESP 12; TEMP 36.2; O2SAT 98; BMI 22.8
--- NOTE | 2020-11-05 09:55 | PM.HEMONCPN ---
Medical Summary - Medical Summary Date of Service: 11/05/20 Chief complaint: Follow-up for: Normochromic normocytic anemia. Medical Summary: DAIGNOSIS: NORMOCHROMIC NORMOCYTIC ANEMIA. Interval History Interval history: Nimesh Velez is a pleasant 50 year old gentleman, here for a follow up. He complains of pain in his right elbow. The joint is tender. It hurts a lot on movement. He has been rather fatigued over the past 4-5 months. He denies fever nor chills. Appetite is decline. He lost 15 lb in 6 months. He had back surgery in 2019. It has been downhill since then he said. This was his 2nd surgery. His back still hurts. He denies headaches. Sometimes he gets lightheaded. He passed out a few weeks ago after he had some dental extractions. Denies any chest pain or trouble breathing. No abdominal pain. He does have heartburn and nausea times. He gets diarrhea at times denies any gross blood in the stools. Denies dysuria or hematuria. He complains of joint pains. Most of his joints hurt. He has back pain. He feels his whole body is numb/week. He has to push himself to do stuff. He does feel a little depressed. Sometimes he gets pruritus. Previous History: He has been noted to be anemic. CBC from 08/30/24 revealed: WBC 7.7, HGB 12.8, HCT 38.9, MCV 95, PLT 376. Review of his labs in the computer revealed the following hemoglobin trend: August 22 10:17 13.3 Apr 27 07:40 13.7 Dec 01 10:05 13.4 Jun 29 10:33 14.0 Nov 11 07:56 14.1 He underwent a colonoscopy [address] Jimenez. This revealed: POSTOPERATIVE DIAGNOSES: 1. Gastroesophageal reflux. 2. Abdominal discomfort. 3. Diarrhea. 4. Abnormal x-rays of his biliary and pancreatic ducts. 5. Normal major papilla. 6. Rule out celiac disease. 7. Duodenitis. 8. Rule out Helicobacter pylori. 9. Hiatal hernia. 10. Reflux esophagitis. 11. Rule out Arreaga's esophagus. 12. Colitis. 13. Diverticulosis. Pathology: GE junction: Reflux disease. Duodenum: Mild focal subacute duodenitis. Stomach: Moderate active chronic gastritis. H pylori I positive. Colon: Moderate active chronic colitis features consistent with chronic inflammatory bowel disease. Negative for dysplasia. Impression: 2. Given the upper endoscopy findings, I shall start him on omeprazole 20 mg daily. 3. In regard to the colonoscopy findings, I shall start him on a mesalamine (Apriso) 1.5 grams per day to see if treating the colitis will help improve his diarrhea. 4. He was advised not to use any aspirin or NSAIDs for at least a week. 5. He was advised to try to limit his caffeine consumption. 6. He has been advised to see me again in 1 month. 7. I do think he still may need an endoscopic ultrasound and possible ERCP to evaluate the abnormal imaging studies of the biliary and pancreatic ducts as well. I shall review that with him when I see him in followup. Apparently the patient did no to go back for a follow-up. Family history: His mom had kidney disease. She had amyloidosis. She was treated for it but passed. 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 Than the [employer] close down. He is . He has 3 children. He smokes occasionally. He drinks occasionally. He likes beer. Denies drugs. Review of Systems - Constitutional Reports system reviewed and no additional complaints, except as documented - Eyes Reports system reviewed and no additional complaints, except as documented - ENT Reports system reviewed and no additional complaints, except as documented - Cardiovascular Reports system reviewed and no additional complaints, except as documented - Respiratory Reports no additional respiratory complaints - Gastrointestinal Reports system reviewed and no additional complaints, except as documented - Genitourinary Genitourinary: Reports no additional male genitourinary complaints - Musculoskeletal Reports system reviewed and no additional complaints, except as documented - Integumentary/Breasts Skin/Breast: Reports no additional skin complaints - Neurologic Reports system reviewed and no additional complaints, except as documented - Psychiatric Reports system reviewed and no additional complaints, except as documented - Endocrine Reports no additional endocrine complaints - Hematologic/Lymphatic Reports system reviewed and no additional complaints, except as documented - Allergic/Immunologic Reports system reviewed and no additional complaints, except as documented [facility] Medical History: Medical History (Last Reviewed 11/05/20 @ 09:30 by Teagan Sierra) Anemia Back pain Colitis DJD (degenerative joint disease) Fatigue Knee pain Functional capacity: independent ambulation Patient : No Family History: Family History (Last Updated 11/06/20 @ 16:02 by Dayami Hawley) Mother No problems noted. Father Asthma Diabetes Brother Asthma Diabetes Sister Asthma Diabetes Surgical History: Surgical History (Last Reviewed 11/06/20 @ 16:02 by Dayami Hawley) H/O knee surgery History of appendectomy History of esophagogastroduodenoscopy (EGD) History of surgical amputation of finger of right hand Hx of colonoscopy Previous back surgery Social History: Social History (Last Reviewed 11/06/20 @ 16:02 by Dayami Hawley) Living Situation History: Housing: House Alcohol History: Alcohol intake: current Alcohol History Details: Alcohol intake frequency: a few times a month Alcohol type: beer Tobacco History: Patient Tobacco Use Status: Current someday Tobacco Tobacco use type: Cigar Cigarettes Per Day: 1 Occupation Assessmet: Current occupational status: unemployed Current occupation: right handed Oncology Screenings - ECOG Performance Status ECOG Performance Status: 0 Home Medications and Allergies Home Medications Medication Instructions Recorded Confirmed Type multivit,calc,mins-folic 240 1 tab PO DAILY tab 06/20/20 11/05/20 History mcg-vit K1 30 mcg-lycopene 300 mcg tablet (One-A-Day Men's Complete) Probiotic 1 tab PO DAILY 10/12/20 11/05/20 History ferrous fumarate 89 mg (29 mg 89 mg PO DAILY 11/06/20 History iron) tablet Allergies Allergy/AdvReac Type Severity Reaction Status Date / Time No Known Allergies Allergy Verified 11/06/20 15:58 Exam Vital signs: Vital Signs Temp 97.2 F 11/05/20 09:26 Pulse 65 11/05/20 09:26 Resp 12 11/05/20 09:26 BP 108/63 11/05/20 09:26 Pulse Ox 98 11/05/20 09:26 Intake & Output 11/04/20 11/05/20 11/05/20 18:59 06:59 18:59 Other: Weight 68.2 kg Weight in Grams [id number] Weight 68.2 kg Body Mass Index 22.8 - Constitutional Present: no acute distress - Routine HEENT Exam Head: Present: normal inspection Eye: Present: normal appearance ENT: Present: mucous membranes moist - Routine Neck Exam Present: full ROM - Routine Respiratory Exam Present: CTAB - Routine Cardiovascular Exam Cardiovascular: Present: RRR, S1, S2 - Routine Abdominal Exam Present: soft, nontender - Routine Extremities Exam Present: nontender - Routine Back/Spine/Pelvis Exam Back/Spine: Present: full ROM - Routine Skin Exam Present: intact - Routine Neurological Exam Present: alert, oriented X3 - Detailed Neurological Exam: Coma Scale Eye Opening: Spontaneous (4) - Routine Psychiatric Exam Present: normal affect Data - Labs CBC & Chem 7: 11/05/20 09:50 11/05/20 09:50 Labs: 08/03/20 09:58 Complete Blood Count Man Dif Routine Comprehensive Met. Panel Routine Ferritin Routine IRON PROFILE Routine Immunofixation Pnl, Serum Routine Lactate Dehydrogenase Routine Vitamin B12 and Folate Routine Laboratory Last Values WBC 7.8 X10*3/uL (4.8-10.8) 08/03/20 09:58 RBC 3.92 X10*6/uL (4.60-5.80) L 08/03/20 09:58 Hgb 12.5 g/dl (14.0-18.0) L 08/03/20 09:58 Hct 38.1 % (42-52) L 08/03/20 09:58 MCV 97.2 fL (80-98) 08/03/20 09:58 MCH 31.9 pg (27.0-33.0) 08/03/20 09:58 MCHC 32.8 g/dl (31.0-36.0) 08/03/20 09:58 RDW 15.2 % (11.0-16.0) 08/03/20 09:58 Plt Count 297 X10*3/uL (160-400) 08/03/20 09:58 MPV 9.3 fL (9.4-12.4) L 08/03/20 09:58 Absolute Nucleated RBC 0.000 X10*3/uL (0.0-0.012) 08/03/20 09:58 Nucleated RBC % (auto) 0.0 /100WBC (0.0-0.2) 08/03/20 09:58 Neutrophils % (Manual) 66 % (45-73) 08/03/20 09:58 Band Neutrophils % 0 % (3-5) L 08/03/20 09:58 Lymphocytes % (Manual) 21 % (20-40) 08/03/20 09:58 Monocytes % (Manual) 8 % (2-11) 08/03/20 09:58 Eosinophils % (Manual) 4 % (0-4) 08/03/20 09:58 Basophils % (Manual) 1 % (0-1) 08/03/20 09:58 Abs Neuts (Manual) 5.1 X10*3/uL (2.2-7.9) 08/03/20 09:58 Lymphocytes # (Manual) 1.6 X10*3/uL (0.6-4.8) 08/03/20 09:58 Monocytes # (Manual) 0.6 X10*3/uL (0.0-1.2) 08/03/20 09:58 Eosinophils # (Manual) 0.3 X10*3/UL (0.0-0.8) 08/03/20 09:58 Basophils # (Manual) 0.1 X10*3/uL (0.0-0.3) 08/03/20 09:58 Platelet Estimate NORMAL (NORMAL) 08/03/20 09:58 Plt Morphology Comment NORMAL 08/03/20 09:58 RBC Morphology NOTED 08/03/20 09:58 Hypochromasia 1+ (5-14) /OIF 08/03/20 09:58 Sodium 140 mmol/L (135-145) 08/03/20 09:58 Potassium 4.3 mmol/L (3.3-5.1) 08/03/20 09:58 Chloride 107 mmol/L (96-108) 08/03/20 09:58 Carbon Dioxide 28 mmol/L (22-29) 08/03/20 09:58 Anion Gap 9 (12-20) L 08/03/20 09:58 BUN 12 mg/dL (9-16) 08/03/20 09:58 Creatinine 0.91 mg/dL (0.5-1.4) 08/03/20 09:58 Estim Creat Clear Calc 95.0 08/03/20 09:58 Estimated GFR > 60 08/03/20 09:58 Random Glucose 102 mg/dL (60-115) 08/03/20 09:58 Calcium 9.3 mg/dL (8.4-10.2) 08/03/20 09:58 Iron 44 mcg/dL (45-160) L 08/03/20 09:58 TIBC 240 mcg/dL (228-428) 08/03/20 09:58 % Saturation 18 % (15-50) 08/03/20 09:58 Unsat Iron Binding 196 ug/dL 08/03/20 09:58 Ferritin 97 ng/mL (20-250) 08/03/20 09:58 Total Bilirubin 0.4 mg/dL (0.0-1.0) 08/03/20 09:58 AST 18 U/L (5-37) 08/03/20 09:58 ALT 13 U/L (0-40) 08/03/20 09:58 Alkaline Phosphatase 88 U/L (39-117) 08/03/20 09:58 Lactate Dehydrogenase 163 U/L (118-273) 08/03/20 09:58 Total Protein 6.8 g/dL (6.5-8.0) 08/03/20 09:58 Albumin 4.3 g/dL (3.5-5.0) 08/03/20 09:58 Vitamin B12 451 pg/mL (200-900) 08/03/20 09:58 Folate 17.3 ng/mL (> or = 4.0) 08/03/20 09:58 IgG Total 845 mg/dL (600-1640) 08/03/20 09:58 IgA Total 240 mg/dL (47-310) 08/03/20 09:58 IgM 80 mg/dL (50-300) 08/03/20 09:58 JANES Interpretation SEE NOTE 08/03/20 09:58 Progress Note: A/P (1) Normochromic normocytic anemia Status: Acute Assessment and plan: This is a pleasant 50 year-old gentleman with the history of normochromic normocytic Anemia. Hemoglobin is mildly low at 12.5. DIFFERENTIAL DIAGNOSIS: 1. IRON DEFICIENCY ANEMIA: He does have a history of colitis. Could be having occult GI bleeding. 2. B12/FOLATE DEFICIENCY: He has had some numbness and tingling in his hands and feet. He could have B12 deficiency as an explanation. 3. ANEMIA OF CHRONIC DISEASE: He does not have kidney disease however he does have some arthralgias/arthritis. 4. HEMOLYTIC ANEMIA: Is in the differential. 5. UNDERLYING MYELO INFILTRATIVE DISORDER: Lymphoma versus MDS versus multiple myeloma. Mom had amyloidosis. l proceeded with further evaluation. Check iron studies and ferritin: 44/240/18/97. Checked B12: 451 and folate levels: 17.3. Checked hemolytic screen, LDH 163. Checked LDH: 163 and an SIEP: No monoclonal spike. He still feels rather tired. His workup is actually non revealing. Hemoglobin is actually 13 today, which has improved. PLAN: I will continue to monitor his blood count. If the blood count continues to drop will proceed with a bone marrow exam for further evaluation. In the meantime he was advised to follow-up with Dr. Jimenez given the history of colitis, and intermittent diarrhea. He will return in 3 months for a follow-up visit. He will have an x-ray of his right elbow on account of the pain. He will be following up with his primary tomorrow for this pain. Thank you, CC: Dr. Cortez. Dr. Jimenez. (2) Anemia Status: Acute - Time Spent With Patient Time Spent with Patient (in minutes): 25
[2020-11-05 10:00] LABS: MANUAL DIFF FLAG NO
[2020-11-05 10:03] LABS: Basophils Absolute Auto 0.1 X10*3/uL (0.0-0.2); Basophils Percent Auto 0.7 % (0-2); Eosinophils Absolute Auto 0.8 X10*3/uL (0.0-0.4); Eosinophils Percent Auto 10.2 % (0-4); Hematocrit 38.9 % (42-52); Imm Gran Abs Auto 0.02 X10*3/uL (0.00-0.03); Imm Gran Pct Auto 0.3 % (0.0-0.4); Lymphocytes Percent Auto 27.1 % (20-40); Mean Corpuscular HGB Conc 33.4 g/dl (31.0-36.0); Mean Corpuscular Volume 95.8 fL (80-98); Mean Platelet Volume 9.3 fL (9.4-12.4); Monocytes Absolute Auto 0.6 X10*3/uL (0.1-1.2); Monocytes Percent Auto 7.5 % (2-11); Neutrophils Percent Auto 54.2 % (45-73); Platelet Count 321 X10*3/uL (160-400); Red Blood Count 4.06 X10*6/uL (4.60-5.80); Red Cell Distribution Width 14.6 % (11.0-16.0); White Blood Count 7.4 X10*3/uL (4.8-10.8)
[2020-11-05 10:31] LABS: Alanine Aminotransferase 19 U/L (0-40); Albumin Level 4.2 g/dL (3.5-5.0); Alkaline Phosphatase 84 U/L (39-117); Anion Gap 12 (12-20); Aspartate Amino Transferase 22 U/L (5-37); Bilirubin Total < 0.2 mg/dL (0.0-1.0); Blood Urea Nitrogen 13 mg/dL (9-16); Calcium 9.2 mg/dL (8.4-10.2); Carbon Dioxide 26 mmol/L (22-29); Chloride 107 mmol/L (96-108); Creatinine Clr Calc Pharmacy 88.8; Estimated Glomerular Filt Rate > 60; Glucose Random 155 mg/dL (60-115); Potassium 3.9 mmol/L (3.3-5.1); Sodium 141 mmol/L (135-145); Total Protein 6.6 g/dL (6.5-8.0)
[2020-11-05 10:49] LABS: Ferritin 96 ng/mL (20-250)
--- NOTE | 2020-11-05 13:26 | MHC.HEMONCMA ---
Pt came in for hem follow up and states he is doing well just feeling a bit fatigued. clinical summary was updated and labs were drawn. pt will return in 3 months on 02/05/21 for hem f/u
--- NOTE | 2021-02-12 09:14 | P.PNHO_ITS ---
Medical Summary - Medical Summary Date of Service: 02/12/21 Chief complaint: F/U for Anemia. Medical Summary: DAIGNOSIS: NORMOCHROMIC NORMOCYTIC ANEMIA. Interval History Interval history: Nimesh Velez is a pleasant 50 year old gentleman, here for a follow up. He complains of pain in his right elbow. The joint is tender. It hurts a lot on movement. He has been rather fatigued over the past 4-5 months. He denies fever nor chills. Appetite is decline. He lost 15 lb in 6 months. He had back surgery in 2019. It has been downhill since then he said. This was his 2nd surgery. His back still hurts. He denies headaches. Sometimes he gets lightheaded. He passed out a few weeks ago after he had some dental extractions. Denies any chest pain or trouble breathing. No abdominal pain. He does have heartburn and nausea times. He gets diarrhea at times denies any gross blood in the stools. Denies dysuria or hematuria. He complains of joint pains. Most of his joints hurt. He has back pain. He feels his whole body is numb/week. He has to push himself to do stuff. He does feel a little depressed. Sometimes he gets pruritus. Previous History: He has been noted to be anemic. CBC from 08/30/24 revealed: WBC 7.7, HGB 12.8, HCT 38.9, MCV 95, PLT 376. Review of his labs in the computer revealed the following hemoglobin trend: August 22 10:17 13.3 Apr 27 07:40 13.7 Dec 01 10:05 13.4 Jun 29 10:33 14.0 Nov 11 07:56 14.1 He underwent a colonoscopy [address] Jimenez. This revealed: POSTOPERATIVE DIAGNOSES: 1. Gastroesophageal reflux. 2. Abdominal discomfort. 3. Diarrhea. 4. Abnormal x-rays of his biliary and pancreatic ducts. 5. Normal major papilla. 6. Rule out celiac disease. 7. Duodenitis. 8. Rule out Helicobacter pylori. 9. Hiatal hernia. 10. Reflux esophagitis. 11. Rule out Arreaga's esophagus. 12. Colitis. 13. Diverticulosis. Pathology: GE junction: Reflux disease. Duodenum: Mild focal subacute duodenitis. Stomach: Moderate active chronic gastritis. H pylori I positive. Colon: Moderate active chronic colitis features consistent with chronic inflammatory bowel disease. Negative for dysplasia. Impression: 2. Given the upper endoscopy findings, I shall start him on omeprazole 20 mg daily. 3. In regard to the colonoscopy findings, I shall start him on a mesalamine (Apriso) 1.5 grams per day to see if treating the colitis will help improve his diarrhea. 4. He was advised not to use any aspirin or NSAIDs for at least a week. 5. He was advised to try to limit his caffeine consumption. 6. He has been advised to see me again in 1 month. 7. I do think he still may need an endoscopic ultrasound and possible ERCP to evaluate the abnormal imaging studies of the biliary and pancreatic ducts as well. I shall review that with him when I see him in followup. Apparently the patient did no to go back for a follow-up. Family history: His mom had kidney disease. She had amyloidosis. She was treated for it but passed. 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 Than the [employer] close down. He is . He has 3 children. He smokes occasionally. He drinks occasionally. He likes beer. Denies drugs. Review of Systems - Constitutional Reports system reviewed and no additional complaints, except as documented, Reports weakness, Reports weight loss, Denies weight gain - Eyes Reports system reviewed and no additional complaints, except as documented - ENT Reports system reviewed and no additional complaints, except as documented - Cardiovascular Reports system reviewed and no additional complaints, except as documented, Denies chest pain at rest - Respiratory Reports no additional respiratory complaints - Gastrointestinal Reports system reviewed and no additional complaints, except as documented, Denies abdominal pain, Denies black, tarry stools - Genitourinary Genitourinary: Reports no additional male genitourinary complaints, Denies blood in urine - Musculoskeletal Reports system reviewed and no additional complaints, except as documented, Denies back pain - Integumentary/Breasts Skin/Breast: Reports no additional skin complaints - Neurologic Reports system reviewed and no additional complaints, except as documented - Psychiatric Reports system reviewed and no additional complaints, except as documented - Endocrine Reports no additional endocrine complaints - Hematologic/Lymphatic Reports system reviewed and no additional complaints, except as documented - Allergic/Immunologic Reports system reviewed and no additional complaints, except as documented PMFSH Medical History: Medical History (Last Reviewed 01/24/21 @ 13:00 by Marium Beltrán DO) Anemia Back pain Colitis Depression DJD (degenerative joint disease) Fatigue Knee pain Vitamin D deficiency Weight loss Functional capacity: independent ambulation Patient : No Family History: Family History (Last Reviewed 01/24/21 @ 13:00 by Marium Beltrán DO) Mother Heart disease Father Asthma Diabetes Heart disease Brother Asthma Diabetes Sister Asthma Diabetes Surgical History: Surgical History (Last Reviewed 01/24/21 @ 13:00 by Marium Beltrán DO) H/O knee surgery History of appendectomy History of esophagogastroduodenoscopy (EGD) History of surgical amputation of finger of right hand Hx of colonoscopy Previous back surgery Previous back surgery Social History: Social History (Last Reviewed 01/24/21 @ 13:00 by Marium Beltrán DO) Living Situation History: Housing: House Alcohol History: Alcohol intake: current Alcohol History Details: Alcohol intake frequency: a few times a month Alcohol type: beer Tobacco History: Patient Tobacco Use Status: Current someday Tobacco Tobacco use type: Cigar Substance Use History: Use of substances other than those prescribed or required for medical reasons : No Nutrition Assessment: Patient : No Occupation Assessmet: Current occupational status: unemployed Current occupation: right handed Oncology Screenings - ECOG Performance Status ECOG Performance Status: 0 Home Medications and Allergies Home Medications Medication Instructions Recorded Confirmed Type multivit,calc,mins-folic 240 1 tab PO DAILY tab 06/20/20 01/24/21 History mcg-vit K1 30 mcg-lycopene 300 mcg tablet (One-A-Day Men's Complete) Probiotic 1 tab PO DAILY 10/12/20 11/05/20 History ferrous fumarate 89 mg (29 mg 89 mg PO DAILY 11/06/20 01/24/21 History iron) tablet hydroxyzine HCl 25 mg tablet 25 mg PO ONCE PRN tab 01/24/21 01/24/21 History Allergies Allergy/AdvReac Type Severity Reaction Status Date / Time No Known Allergies Allergy Verified 01/24/21 12:44 Exam Vital signs: Vital Signs Temp 97.2 F 11/05/20 09:26 Pulse 65 11/05/20 09:26 Resp 12 11/05/20 09:26 BP 108/63 11/05/20 09:26 Pulse Ox 98 11/05/20 09:26 Weight 68.2 kg Body Mass Index 22.8 - Constitutional Present: no acute distress - Routine HEENT Exam Head: Present: normal inspection Eye: Present: normal appearance ENT: Present: mucous membranes moist - Routine Neck Exam Present: full ROM - Routine Respiratory Exam Present: CTAB - Routine Cardiovascular Exam Cardiovascular: Present: RRR, S1, S2 - Routine Abdominal Exam Present: soft, nontender - Routine Extremities Exam Present: nontender - Routine Back/Spine/Pelvis Exam Back/Spine: Present: full ROM - Routine Skin Exam Present: intact - Routine Neurological Exam Present: alert, oriented X3 - Detailed Neurological Exam: Coma Scale Eye Opening: Spontaneous (4) - Routine Psychiatric Exam Present: normal affect Data - Labs CBC & Chem 7: 11/05/20 09:50 11/05/20 09:50 Assessment and Plan Patient Active problem list reviewed?: Yes (1) Normochromic normocytic anemia Status: Acute Assessment and plan: This is a pleasant 50 year-old gentleman with the history of normochromic normocytic Anemia. Hemoglobin is mildly low at 12.5. DIFFERENTIAL DIAGNOSIS: 1. IRON DEFICIENCY ANEMIA: He does have a history of colitis. Could be having occult GI bleeding. 2. B12/FOLATE DEFICIENCY: He has had some numbness and tingling in his hands and feet. He could have B12 deficiency as an explanation. 3. ANEMIA OF CHRONIC DISEASE: He does not have kidney disease however he does have some arthralgias/arthritis. 4. HEMOLYTIC ANEMIA: Is in the differential. 5. UNDERLYING MYELO INFILTRATIVE DISORDER: Lymphoma versus MDS versus multiple myeloma. Mom had amyloidosis. l proceeded with further evaluation. Check iron studies and ferritin: 44/240/18/97. Checked B12: 451 and folate levels: 17.3. Checked hemolytic screen, LDH 163. Checked LDH: 163 and an SIEP: No monoclonal spike. He still feels rather tired. His workup is actually non revealing. Hemoglobin is actually 13 today, which has improved. PLAN: I will continue to monitor his blood count. If the blood count continues to drop will proceed with a bone marrow exam for further evaluation. In the meantime he was advised to follow-up with Dr. Jimenez given the history of colitis, and intermittent diarrhea. He will return in 3 months for a follow-up visit. He will have an x-ray of his right elbow on account of the pain. He will be following up with his primary tomorrow for this pain. Thank you, CC: Dr. Cortez. Dr. Jimenez. (2) Anemia Status: Acute - Time Spent With Patient Time Spent with Patient (in minutes): 30
== END | disposition home or self-care (01) ==
LOC: HO.ONC 08-03 09:01
PROVIDERS: PCP Internal Medicine; Referring Provider Internal Medicine; Visit Provider Internal Medicine Medical Oncology
DX: D64.9 Anemia, unspecified (principal); M25.521 Pain in right elbow
CPT/HCPCS: 36415; 80053; 82607; 82728; 82746; 82784; 83540; 83615; 85007; 85025; 85027; 86334; 99204; 99214